=== PATIENT | female | born 1995 | race Caucasian/White ===

== ENCOUNTER 2016-04-21 01:20 | Emergency (ER) | payer BC, SELFPAY ==
[~2016-04-21 01:20] MED LIST: VICO5TAB PO; prenatal vitamins
[2016-04-21] MEDS ORDERED: METOCLOPRAMIDE 10 MG TAB As Ordered ONE (01:58)
[2016-04-21] MEDS ORDERED: NAPROXEN 250 MG TAB As Ordered ONE (01:58)
--- NOTE | 2016-04-21 02:20 | REPUSA ---
CLINICAL HISTORY: Head trauma. TECHNIQUE: Multiple axial brain CT scan sections were obtained from base to vertex without contrast a dministration. COMMENTS: There is no evidence of skull fracture. The study shows normal configuration of sella turcica. There are no intra or extra-axial collections. There is no mass effect or midline shift. There is no evidence of hematoma formation. No hydrocephal us is present. No abnormal calcifications are noted. No significant abnormalities are seen either in the posterior fossa or supratentorial compartment. Mild chronic mucosal inflammatory changes of the ethmoid air cells. The sinuses and mastoid air cells are patent. IMPRESSION: Mild chronic mucosal inflammatory changes of the ethmoid air cells. No evidence of acute intracranial pathology. No intracranial hemorrhage or skull fracture. Thank you for your kind referral of this patient.
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
--- NOTE | 2016-04-21 02:23 | EDDOCDS ---
Physician Documentation [facility] Name: Tona Valdes Age: 20 yrs Sex: Female : 1995 Arrival Date: 04/21/2016 Time: 01:20 Bed I4 / M4 Private MD: Disposition: 04/21/16 02:19 Discharged to Home/Self Care. Impression: Concussion without loss of consciousness. - Condition is Stable. - Discharge Instructions: Head Injury, Adult. - Prescriptions for ZOFRAN ODT 4 mg - dissolve 1 tablet by ORAL route 4 times per day As needed do not chew, do not swallow whole; 10 tablet. - Medication Reconciliation form. - Follow up: Emergency Department; When: As needed. Follow [facility]: [facility]; When: Call to arrange an appointment; Reason: Wound/Symptom Recheck, Recheck today's complaints, Worsening of conditions, Continuance of care. - Problem is an ongoing problem. - Symptoms are unchanged. Historical: - Allergies: no known allergies; - Home Meds: 1. none - PMHx: Ovarian cyst; - PSHx: Laparoscopy; - Social history: Smoking status: Patient uses tobacco products, current every day smoker. No barriers to communication noted, The patient speaks fluent Malaysian, Speaks appropriately for age, Preferred Language: Malaysian. - Family history: No immediate family members are acutely ill. - : The pt / caregiver states he / she is not on anticoagulants. Home medication list is obtained from the patient. - Exposure Risk Screening:: None identified. 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 5 in. (165.10 cm) (R); Pain 8/10; 01:37 Body Mass Index 21.63 (58.97 kg, 165.10 cm) lf1 Riana Coma Score: 01:33 Eye Response: spontaneous(4). Verbal Response: oriented(5). Motor Response: obeys lf1 commands(6). Total: 15. MDM: 01:50 Metoclopramide 10 mg PO once ordered. cc10 01:50 Naproxen 500 mg PO once; administer with food or milk ordered. cc10 01:51 CT Head Without Contrast Ordered. EDMS Administered Medications: 02:00 Drug: Metoclopramide 10 mg [metoclopramide 10 mg tablet (1 tabs)] Route: PO; nn1 02:00 Drug: Naproxen 500 mg [naproxen 250 mg tablet (2 tabs)] Route: PO; nn1 Signatures: Dispatcher [employer] EDMS Ashia Bella RN RN lf1 Sky Mccabe, PA-C PA-C cc10 Manpreet Maciel,RN RN nn1 MTDD
--- NOTE | 2016-04-23 03:24 | EDDOCDS ---
Physician Documentation [facility] Name: Tona Valdes Age: 20 yrs Sex: Female : 1995 Arrival Date: 04/21/2016 Time: 01:20 Bed I4 / M4 Private MD: Disposition: 04/21/16 02:19 Discharged to Home/Self Care. Impression: Concussion without loss of consciousness. - Condition is Stable. - Discharge Instructions: Head Injury, Adult. - Prescriptions for ZOFRAN ODT 4 mg - dissolve 1 tablet by ORAL route 4 times per day As needed do not chew, do not swallow whole; 10 tablet. - Medication Reconciliation form. - Follow up: Emergency Department; When: As needed. Follow up: [facility]; When: Call to arrange an appointment; Reason: Wound/Symptom Recheck, Recheck today's complaints, Worsening of conditions, Continuance of care. - Problem is an ongoing problem. - Symptoms are unchanged. Historical: - Allergies: no known allergies; - Home Meds: 1. none - PMHx: Ovarian cyst; - PSHx: Laparoscopy; - Social history: Smoking status: Patient uses tobacco products, current every day smoker. No barriers to communication noted, The patient speaks fluent Mozambican, Speaks appropriately for age, Preferred Language: Mozambican. - Family history: No immediate family members are acutely ill. - : The pt / caregiver states he / she is not on anticoagulants. Home medication list is obtained from the patient. - Exposure Risk Screening:: None identified. 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 5 in. (165.10 cm) (R); Pain 8/10; 01:37 Body Mass Index 21.63 (58.97 kg, 165.10 cm) lf1 Riana Coma Score: 01:33 Eye Response: spontaneous(4). Verbal Response: oriented(5). Motor Response: obeys lf1 commands(6). Total: 15. MDM: 01:50 Metoclopramide 10 mg PO once ordered. cc10 01:50 Naproxen 500 mg PO once; administer with food or milk ordered. cc10 01:51 CT Head Without Contrast Ordered. EDMS 03:14 [facility] [place] Payment Agreement was scanned into [employer] and attached to record. pm4 13:55 T-Sheet-- Draft Copy was scanned into [employer] and attached to record. gb 13:56 Radiology Report was scanned into [employer] and attached to record. gb Administered Medications: 02:00 Drug: Metoclopramide 10 mg [metoclopramide 10 mg tablet (1 tabs)] Route: PO; nn1 02:00 Drug: Naproxen 500 mg [naproxen 250 mg tablet (2 tabs)] Route: PO; nn1 Signatures: Dispatcher [employer] EDMS Penny Morales, Reg Reg gb Ashia Bella,RN RN lf1 Sky Mccabe PA-C PAQuoc cc10 Manpreet Maciel RN RN nn1 Marin Mead, Reg Reg pm4 The chart was reviewed and I authenticate all verbal orders and agree with the evaluation and treatment provided.Attachments: 03:14 [facility] Payment Agreement pm4 13:55 T-Sheet-- Draft Copy gb Chart Complete MTDD
--- NOTE | 2016-04-23 03:24 | EDDOCDS ---
Physician Documentation [facility] Name: Tona Valdes Age: 20 yrs Sex: Female : 1995 Arrival Date: 04/21/2016 Time: 01:20 Bed I4 / M4 Private MD: Disposition: 04/21/16 02:19 Discharged to Home/Self Care. Impression: Concussion without loss of consciousness. - Condition is Stable. - Discharge Instructions: Head Injury, Adult. - Prescriptions for ZOFRAN ODT 4 mg - dissolve 1 tablet by ORAL route 4 times per day As needed do not chew, do not swallow whole; 10 tablet. - Medication Reconciliation form. - Follow up: Emergency Department; When: As needed. Follow up: [facility]; When: Call to arrange an appointment; Reason: Wound/Symptom Recheck, Recheck today's complaints, Worsening of conditions, Continuance of care. - Problem is an ongoing problem. - Symptoms are unchanged. Historical: - Allergies: no known allergies; - Home Meds: 1. none - PMHx: Ovarian cyst; - PSHx: Laparoscopy; - Social history: Smoking status: Patient uses tobacco products, current every day smoker. No barriers to communication noted, The patient speaks fluent Luxembourger, Speaks appropriately for age, Preferred Language: Luxembourger. - Family history: No immediate family members are acutely ill. - : The pt / caregiver states he / she is not on anticoagulants. Home medication list is obtained from the patient. - Exposure Risk Screening:: None identified. 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 5 in. (165.10 cm) (R); Pain 8/10; 01:37 Body Mass Index 21.63 (58.97 kg, 165.10 cm) lf1 Riana Coma Score: 01:33 Eye Response: spontaneous(4). Verbal Response: oriented(5). Motor Response: obeys lf1 commands(6). Total: 15. MDM: 01:50 Metoclopramide 10 mg PO once ordered. cc10 01:50 Naproxen 500 mg PO once; administer with food or milk ordered. cc10 01:51 CT Head Without Contrast Ordered. EDMS 03:14 [facility] [place] Payment Agreement was scanned into [employer] and attached to record. pm4 13:55 T-Sheet-- Draft Copy was scanned into [employer] and attached to record. gb 13:56 Radiology Report was scanned into [employer] and attached to record. gb Administered Medications: 02:00 Drug: Metoclopramide 10 mg [metoclopramide 10 mg tablet (1 tabs)] Route: PO; nn1 02:00 Drug: Naproxen 500 mg [naproxen 250 mg tablet (2 tabs)] Route: PO; nn1 Signatures: Dispatcher [employer] EDMS Penny Morales, Reg Reg gb Ashia Bella,RN RN lf1 Sky Mccabe PA-C PAQuco cc10 Manpreet Maciel RN RN nn1 Marin Mead, Reg Reg pm4 The chart was reviewed and I authenticate all verbal orders and agree with the evaluation and treatment provided.Attachments: 03:14 [facility] Payment Agreement pm4 13:55 T-Sheet-- Draft Copy gb Chart Complete MTDD
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
== END 2016-04-21 02:23 | disposition home or self-care (01) ==
LOC: M ED 01:20
DX: S06.0X0A Concussion without loss of consciousness, initial encounter (principal); W22.01XA Walked into wall, initial encounter; Y92.410 Unspecified street and highway as the place of occurrence of the external cause; Y93.89 Activity, other specified; Y99.8 Other external cause status; Z87.42 Personal history of other diseases of the female genital tract; F17.210 Nicotine dependence, cigarettes, uncomplicated

== ENCOUNTER → 2016-06-02 | Outpatient (CLI) | payer BC ==
[2016-06-02 17:36] LABS: CONTROL LINE HCG INT CTR LINE PRESENT
[2016-06-02 18:05] LABS: ALBUMIN 4.2 GM/DL (3.2-5.2); ALBUMIN/GLOBULIN RATIO 1.35 (1.00-1.93); ALKALINE PHOSPHATASE 54 U/L (45-117); ALT/SGPT 15 U/L (12-78); AMYLASE 56 U/L (25-115); ANION GAP 9 MEQ/L (8-16); AST/SGOT 12 U/L (15-37); BILIRUBIN,TOTAL 0.2 MG/DL (0.2-1.0); BLOOD UREA NITROGEN 14 MG/DL (7-18); CALCIUM LEVEL 8.8 MG/DL (8.5-10.1); CARBON DIOXIDE LEVEL 27 MEQ/L (21-32); CHLORIDE LEVEL 106 MEQ/L (98-107); CREATININE FOR GFR 0.82 MG/DL (0.55-1.02); FREE T4 1.02 NG/DL (0.78-1.33); GLUCOSE, FASTING 126 MG/DL (70-105); MAGNESIUM LEVEL 2.2 MG/DL (1.8-2.4); POTASSIUM SERUM 4.3 MEQ/L (3.5-5.1); SODIUM LEVEL 142 MEQ/L (136-145); TOTAL PROTEIN 7.3 GM/DL (6.4-8.2)
[2016-06-02 18:32] LABS: ADD MORPHOLOGY? YES; BASO % 0.7 % (0.0-1.0); EOS # 0.1 K/mm3 (0.0-0.50); EOS % 2.9 % (0.0-3.0); LARGE UNSTAINED CELL # 0.1 K/mm3 (0.0-0.4); LARGE UNSTAINED CELL % 1.8 % (0.0-4.0); LYMPH # 1.4 K/mm3 (1.5-6.5); MEAN CORPUSCULAR HEMOGLOBIN 27.4 pg (27.0-33.0); MEAN CORPUSCULAR HGB CONC 31.1 g/dl (32.0-36.5); MEAN CORPUSCULAR VOLUME 88.2 fl (80.0-96.0); MONO # 0.3 K/mm3 (0.0-0.8); MONO % 6.6 % (0.0-5.0); NEUTROPHILS # 2.1 K/mm3 (1.8-7.7); NEUTROPHILS % 53.9 % (36.0-66.0); PLATELET COUNT, AUTOMATED 299 k/mm3 (150-450); RED CELL DISTRIBUTION WIDTH 13.7 % (11.5-14.5); WHITE BLOOD COUNT 3.8 K/mm3 (4.0-10.0)
[2016-06-03 08:32] LABS: CONTROL LINE HPYORI INT CTR LINE PRESENT
== END ==
LOC: M WUC 10:50
PROVIDERS: ATTEND Physician Assistant Medical
DX: R11.0 Nausea (principal)

== ENCOUNTER → 2016-06-23 | Outpatient (CLI) | payer BC ==
[2016-06-23 19:03] LABS: ANION GAP 6 MEQ/L (8-16); BLOOD UREA NITROGEN 14 MG/DL (7-18); CARBON DIOXIDE LEVEL 28 MEQ/L (21-32); CHLORIDE LEVEL 106 MEQ/L (98-107); FERRITIN 4 NG/ML (8-252); GLUCOSE, FASTING 86 MG/DL (70-105); PERCENT SATURATION 10.9 % (13.2-37.4); POTASSIUM SERUM 4.2 MEQ/L (3.5-5.1); SODIUM LEVEL 140 MEQ/L (136-145); TOTAL IRON BINDING CAPACITY 433 UG/DL (250-450)
== END ==
LOC: M WUC 10:34
PROVIDERS: ATTEND Physician Assistant Medical
DX: R53.83 Other fatigue (principal); R73.01 Impaired fasting glucose

== ENCOUNTER → 2017-03-01 | Outpatient (CLI) | payer BC ==
[~2017-03-01] MED LIST changes: +BACT800T5 PO; +TYLE500T78 PO; +ULTR50TA8 PO; +ZOFR4TAB3 PO
[2017-03-01 10:11] LABS: BASO % 0.4 % (0.0-1.0); EOS # 0.2 10^3/uL (0.0-0.50); IMMATURE GRANULOCYTE % 0.4 % (0-0); LYMPH # 1.6 10^3/uL (1.5-6.5); LYMPH % 23.2 % (24.0-44.0); MEAN CORPUSCULAR HEMOGLOBIN 29.3 pg (27.0-33.0); MEAN CORPUSCULAR VOLUME 88.7 fl (80.0-96.0); MONO # 0.8 10^3/uL (0.0-0.8); MONO % 11.2 % (0.0-5.0); NEUTROPHILS # 4.1 10^3/uL (1.8-7.7); NEUTROPHILS % 61.8 % (36.0-66.0); PLATELET COUNT, AUTOMATED 247 10^3/uL (150-450); RED CELL DISTRIBUTION WIDTH 17.6 % (11.5-14.5); WHITE BLOOD COUNT 6.7 10^3/uL (4.0-10.0)
[2017-03-01 10:32] LABS: ALBUMIN 4.1 GM/DL (3.2-5.2); ALBUMIN/GLOBULIN RATIO 1.24 (1.00-1.93); ALKALINE PHOSPHATASE 44 U/L (45-117); ALT/SGPT 20 U/L (12-78); ANION GAP 5 MEQ/L (8-16); AST/SGOT 16 U/L (7-37); BILIRUBIN,TOTAL 0.4 MG/DL (0.2-1.0); BLOOD UREA NITROGEN 12 MG/DL (7-18); CALCIUM LEVEL 9.4 MG/DL (8.5-10.1); CARBON DIOXIDE LEVEL 30 MEQ/L (21-32); CHLORIDE LEVEL 107 MEQ/L (98-107); CHOLESTEROL LEVEL 132 MG/DL (<200); CREATININE FOR GFR 0.87 MG/DL (0.55-1.02); GLOMERULAR FILTRATION RATE > 60.0 (>60); GLUCOSE, FASTING 86 MG/DL (70-105); PERCENT SATURATION 16.3 % (13.2-45.0); POTASSIUM SERUM 4.1 MEQ/L (3.5-5.1); SODIUM LEVEL 142 MEQ/L (136-145); TOTAL IRON BINDING CAPACITY 326 UG/DL (250-450); TOTAL PROTEIN 7.4 GM/DL (6.4-8.2); TRIGLYCERIDES LEVEL 74 MG/DL (<150)
[2017-03-01 10:38] LABS: CORTISOL AM 26.4 UG/DL (4.3-22.4); PROGESTERONE 8.3 NG/ML
[2017-03-03 00:06] LABS: TISSUE TRANSGLUTAMINASE IgG <2 U/mL (0-5)
== END ==
LOC: M LAB 09:29
PROVIDERS: ATTEND Nurse Practitioner Pediatrics
DX: E83.10 Disorder of iron metabolism, unspecified (principal); F43.22 Adjustment disorder with anxiety; F90.9 Attention-deficit hyperactivity disorder, unspecified type

== ENCOUNTER 2017-03-19 15:31 | Emergency (ER) | payer BC ==
[~2017-03-19] VITALS: Ht 165.1 cm; Wt 55.9 kg
[2017-03-19 16:03] LABS: SPECIFIC GRAVITY UR AUTO RFX 1.003 (1.002-1.035); SQUAM EPITHELIAL CELL UR AURFX 2 /HPF (0-6)
[2017-03-19] MEDS ORDERED: NS 1,000 ML IV ONE (16:15)
[2017-03-19] MEDS ORDERED: ONDANSETRON 4MG/2ML VIAL (J2405) IV ONE (16:15)
[2017-03-19] MEDS ORDERED: PANTOPRAZOLE 40MG INJ (PROTONIX) (C9113) IV ONE (16:15)
[2017-03-19] MEDS ORDERED: KETOROLAC 30 MG/ML VIAL (J1885) IV ONE (16:15)
[2017-03-19 16:39] LABS: BASO # 0.1 10^3/uL (0.0-0.2); BASO % 0.5 % (0.0-1.0); EOS # 0.1 10^3/uL (0.0-0.50); EOS % 0.8 % (0.0-3.0); IMMATURE GRANULOCYTE % 0.3 % (0-0); LYMPH # 2.3 10^3/uL (1.5-6.5); LYMPH % 23.7 % (24.0-44.0); MEAN CORPUSCULAR HEMOGLOBIN 29.4 pg (27.0-33.0); MEAN CORPUSCULAR HGB CONC 33.4 g/dl (32.0-36.5); MEAN CORPUSCULAR VOLUME 87.9 fl (80.0-96.0); MONO # 0.6 10^3/uL (0.0-0.8); MONO % 5.7 % (0.0-5.0); NEUTROPHILS # 6.7 10^3/uL (1.8-7.7); PLATELET COUNT, AUTOMATED 321 10^3/uL (150-450); RED CELL DISTRIBUTION WIDTH 16.2 % (11.5-14.5); WHITE BLOOD COUNT 9.7 10^3/uL (4.0-10.0)
--- NOTE | 2017-03-19 16:42 | REP ---
Clinical: Left upper quadrant abdominal pain. Findings: Lung bases are clear. Visualized heart and pericardium normal. Liver, spleen, pancreas, gallbladder, bilateral adrenal glands and kidneys are normal for noncontrast evaluation. Enteric system is without obstruction or acute inflammatory process. Normal terminal ileum and appendix identified in the right lower quadrant. Pelvis demonstrates normal bladder and age-appropriate uterus/adnexa. No pelvic fluid or ascites. No free air. Musculoskeletal structures are intact. Impression: No acute abdominopelvic pathology appreciated. Signed by Timothy Palacio MD 03/19/2017 04:33 P
[2017-03-19 17:02] LABS: ALBUMIN 4.3 GM/DL (3.2-5.2); ALBUMIN/GLOBULIN RATIO 1.34 (1.00-1.93); ALKALINE PHOSPHATASE 52 U/L (45-117); ALT/SGPT 21 U/L (12-78); ANION GAP 7 MEQ/L (8-16); AST/SGOT 18 U/L (7-37); BILIRUBIN,DIRECT 0.2 MG/DL (0.0-0.2); BILIRUBIN,TOTAL 0.4 MG/DL (0.2-1.0); BLOOD UREA NITROGEN 9 MG/DL (7-18); CARBON DIOXIDE LEVEL 29 MEQ/L (21-32); CHLORIDE LEVEL 105 MEQ/L (98-107); CREATININE FOR GFR 0.63 MG/DL (0.55-1.02); GLOMERULAR FILTRATION RATE > 60.0 (>60); GLUCOSE, FASTING 82 MG/DL (70-105); POTASSIUM SERUM 3.8 MEQ/L (3.5-5.1); SODIUM LEVEL 141 MEQ/L (136-145); TOTAL PROTEIN 7.5 GM/DL (6.4-8.2)
[2017-03-19] MEDS ORDERED: CARA1TAB6 PO (17:29)
[2017-03-19] MEDS ORDERED: PROT1TAB2 PO (17:29)
[2017-03-19 17:59] VITALS: BP 122/74
== END 2017-03-19 18:02 | disposition home or self-care (01) ==
LOC: M ED 15:31
DX: K29.00 Acute gastritis without bleeding (principal); Z72.0 Tobacco use
CPT/HCPCS: 74176; 80048; 80076; 81001; 81025; 83690; 85025; 85610; 96374; 96375; 99284; C9113; J1885; J2405

== ENCOUNTER → 2018-11-24 | Outpatient (CLI) | payer MEDICARE ==
[~2018-11-24] MED LIST changes: +CARA1TAB6 PO; +PROT1TAB2 PO; +ZOFR4TAB14 PO; -ZOFR4TAB3 PO
--- NOTE | 2018-11-24 14:35 | REP ---
Cervical spine age views: Vertebral body heights, interspacing alignment are normal C1-C7. Kilos obscured on the lateral views by the shoulders. There is no listhesis on flexion or extension. The prevertebral soft tissues are unremarkable. The facets are normally aligned. There is no bony foraminal encroachment. The odontoid view is unremarkable. Impression: Negative cervical spine C1-C7. T1 is obscured by the shoulders. Electronically Signed by Saúl Kern MD 11/24/2018 02:27 P
--- NOTE | 2018-11-24 14:36 | REP ---
Left shoulder three views : There is no fracture or dislocation. Mineralization and joint spaces are normal. There are no calcifications or foreign bodies. Impression: Negative left shoulder . Electronically Signed by Saúl Kern MD 11/24/2018 02:28 P
[2018-11-24 17:08] LABS: ALT/SGPT 17 U/L (12-78); BILIRUBIN,TOTAL 0.6 MG/DL (0.2-1.0); BLOOD UREA NITROGEN 12 MG/DL (7-18); CALCIUM LEVEL 9.2 MG/DL (8.5-10.1); CARBON DIOXIDE LEVEL 25 MEQ/L (21-32); CHLORIDE LEVEL 107 MEQ/L (98-107); CHOLESTEROL LEVEL 156 MG/DL (<200); CHOLESTEROL RISK RATIO 2.328 (<5); CREATININE FOR GFR 0.68 MG/DL (0.55-1.30); GLOMERULAR FILTRATION RATE > 60.0 (>60); GLUCOSE, FASTING 80 MG/DL (70-100); HDL CHOLESTEROL 67 MG/DL (>40); LDL CHOLESTEROL 74 MG/DL (<100); NON-HDL-C 89 MG/DL; POTASSIUM SERUM 4.4 MEQ/L (3.5-5.1); SODIUM LEVEL 138 MEQ/L (136-145); THYROID STIMULATING HORMONE 0.911 uIU/ML (0.358-3.740); TOTAL PROTEIN 7.2 GM/DL (6.4-8.2); TRIGLYCERIDES LEVEL 74 MG/DL (<150)
[2018-11-24 17:10] LABS: TOTAL 25(OH) VITAMIN D 33.2 NG/ML (30.0-100.0)
[2018-11-24 17:30] LABS: HEMOGLOBIN 10.4 g/dl (12.0-15.5); MEAN CORPUSCULAR HEMOGLOBIN 25.2 pg (27.0-33.0); MEAN CORPUSCULAR HGB CONC 30.6 g/dl (32.0-36.5); MEAN CORPUSCULAR VOLUME 82.5 fl (80.0-96.0); PLATELET COUNT, AUTOMATED 302 10^3/uL (150-450); RED BLOOD COUNT 4.12 10^6/uL (4.00-5.40); WHITE BLOOD COUNT 4.4 10^3/uL (4.0-10.0)
[2018-11-24 18:21] LABS: HEMOGLOBIN A1c 6.3 %
== END ==
LOC: M WUC 10:37
PROVIDERS: ATTEND Family Medicine
DX: D64.9 Anemia, unspecified (principal); R53.83 Other fatigue; E03.9 Hypothyroidism, unspecified

== ENCOUNTER → 2019-08-30 | Outpatient (CLI) | payer MEDICARE ==
[2019-08-30 16:40] LABS: BASO % 0.6 % (0.0-1.0); EOS # 0.1 10^3/uL (0.0-0.5); EOS % 2.2 % (0.0-3.0); HEMATOCRIT 37.8 % (36.0-47.0); HEMOGLOBIN 12.2 g/dl (12.0-15.5); LYMPH # 1.9 10^3/uL (1.5-5.0); LYMPH % 36.1 % (24.0-44.0); MEAN CORPUSCULAR HEMOGLOBIN 27.6 pg (27.0-33.0); MEAN CORPUSCULAR HGB CONC 32.3 g/dl (32.0-36.5); MEAN CORPUSCULAR VOLUME 85.5 fl (80.0-96.0); MONO # 0.4 10^3/uL (0.0-0.8); MONO % 6.9 % (0.0-5.0); NEUTROPHILS # 2.9 10^3/uL (1.5-8.5); PLATELET COUNT, AUTOMATED 306 10^3/uL (150-450); RED BLOOD COUNT 4.42 10^6/uL (4.00-5.40); WHITE BLOOD COUNT 5.3 10^3/uL (4.0-10.0)
[2019-08-30 16:41] LABS: ALBUMIN 4.2 GM/DL (3.2-5.2); ALT/SGPT 28 U/L (12-78); BILIRUBIN,TOTAL 0.2 MG/DL (0.2-1.0); BLOOD UREA NITROGEN 10 MG/DL (7-18); CALCIUM LEVEL 9.3 MG/DL (8.5-10.1); CARBON DIOXIDE LEVEL 25 MEQ/L (21-32); CHLORIDE LEVEL 108 MEQ/L (98-107); CREATININE FOR GFR 0.69 MG/DL (0.55-1.30); GLOMERULAR FILTRATION RATE > 60.0 (>60); GLUCOSE, FASTING 90 MG/DL (70-100); LIPASE 125 U/L (73-393); POTASSIUM SERUM 4.2 MEQ/L (3.5-5.1); SODIUM LEVEL 140 MEQ/L (136-145); TOTAL PROTEIN 7.3 GM/DL (6.4-8.2)
--- NOTE | 2019-08-30 23:50 | REP ---
CHEST, TWO VIEWS: There is no evidence of acute infiltrate. No pleural effusion is seen. The heart is normal in size. The mediastinal silhouette is unremarkable. The visualized osseous structures are intact. IMPRESSION: No acute pulmonary disease. Electronically Signed by Saúl Mcnamara MD 09/03/2019 09:28 P
== END ==
LOC: M WUC 13:21
PROVIDERS: ATTEND Physician Assistant
DX: R10.13 Epigastric pain (principal); R07.89 Other chest pain

== ENCOUNTER → 2019-12-31 | Outpatient (CLI) | payer MEDICARE ==
[2019-12-31 18:23] LABS: HCG, SERUM QUALITATIVE NEGATIVE (NEGATIVE)
[2019-12-31 18:42] LABS: FOLLICLE STIMULATING HORMONE 24.5 mIU/mL; GLUCOSE,RANDOM 82 MG/DL (LESS THAN 200); PROLACTIN 9.9 NG/ML
[2020-01-08 00:08] LABS: 17 HYDROXY PROGESTERONE 125 ng/dL (.); INSULIN FREE 3.9 uU/mL (.); TESTOSTERONE FREE (DIRECT) 2.5 pg/mL (0.0-4.2)
== END ==
LOC: M WUC 12:05
PROVIDERS: ATTEND Nurse Practitioner Adult Health
DX: N92.6 Irregular menstruation, unspecified (principal)

== ENCOUNTER → 2020-03-03 | Outpatient (CLI) | payer MEDICARE | LOC: M WUC 08:39 | PROVIDERS: ATTEND Obstetrics & Gynecology Obstetrics | DX: Z71.2 Person consulting for explanation of examination or test findings (principal) ==

== ENCOUNTER → 2020-07-10 | Outpatient (REF) | payer OTHER ==
[2020-07-10 14:16] LABS: HEMOGLOBIN 12.3 g/dl (12.0-15.5); MEAN CORPUSCULAR HEMOGLOBIN 30.1 pg (27.0-33.0); MEAN CORPUSCULAR HGB CONC 32.4 g/dl (32.0-36.5); MEAN CORPUSCULAR VOLUME 93.1 fl (80.0-96.0); PLATELET COUNT, AUTOMATED 264 10^3/uL (150-450); RED BLOOD COUNT 4.08 10^6/uL (4.00-5.40); WHITE BLOOD COUNT 6.4 10^3/uL (4.0-10.0)
[2020-07-10 15:06] LABS: CHLAMYDIA DNA AMPLIFICATION NEGATIVE (NEGATIVE); GC DNA AMPLIFICATION NEGATIVE (NEGATIVE)
[2020-07-10 16:46] LABS: HEPATITIS C VIRUS ABY INDEX < 0.0 INDEX (<0.8); HIV 1&2 SCREEN CENTAUR NEGATIVE (NEGATIVE)
== END ==
LOC: M PLALAB 10:52
PROVIDERS: ATTEND Obstetrics & Gynecology
DX: Z36.89 Encounter for other specified antenatal screening (principal); Z3A.01 Less than 8 weeks gestation of pregnancy

== ENCOUNTER → 2020-08-05 | Outpatient (CLI) | payer OTHER | LOC: M WHC 10:47 | PROVIDERS: ATTEND Obstetrics & Gynecology | DX: Z53.9 Procedure and treatment not carried out, unspecified reason (principal) ==

== ENCOUNTER → 2020-08-28 | Outpatient (CLI) | payer BC ==
--- NOTE | 2020-08-28 12:53 | REP ---
INDICATION: ANATOMY COMPARISON: None. TECHNIQUE: Transabdominal obstetrical ultrasound with color Doppler evaluation. FINDINGS: Examination demonstrates a single live intrauterine in variable presentation. motion is identified by technologist. Placenta is noted posterior and grade 1 without evidence for placenta previa or abruption. Placental lakes noted. Amniotic fluid volume is normal. Cervix measures 4 cm in length and appears closed.. Gestational age by LMP 18 weeks 3 days with CALLI 01/26/2021. Gestational age by current measurements 18 weeks 4 days with CALLI 01/25/2021. FHR equals 142 beats per minute. Estimated weight 252 grams (62ndpercentile). Anatomical assessment demonstrates normal structures including cranium, choroid plexus, cavum, cerebellum/posterior fossa, facial features, lungs, diaphragm, stomach, cord insertion/three-vessel cord, kidneys/bladder, spine, and extremities. IMPRESSION: 1. Single live intrauterine in variable presentation demonstrating appropriate estimated weight. 2. Limited evaluation of the heart/ventricular outflow tracts. Remainder of the anatomical assessment is complete and normal. 3. Incidental placental lakes noted. <Electronically signed by Timothy Palacio > 08/28/20 [id number]
== END ==
LOC: M WHC 10:29
PROVIDERS: ATTEND Obstetrics & Gynecology
DX: Z36.89 Encounter for other specified antenatal screening (principal); Z3A.15 15 weeks gestation of pregnancy

== ENCOUNTER → 2020-09-03 | Outpatient (REF) | payer OTHER | LOC: M PLALAB 09:50 | PROVIDERS: ATTEND Advanced Practice Midwife | DX: O99.019 Anemia complicating pregnancy, unspecified trimester (principal) ==

== ENCOUNTER → 2020-09-03 | Outpatient (CLI) | payer OTHER ==
[2020-09-03 18:15] LABS: HEMATOCRIT 31.3 % (36.0-47.0); HEMOGLOBIN 10.4 g/dl (12.0-15.5); MEAN CORPUSCULAR HEMOGLOBIN 30.6 pg (27.0-33.0); MEAN CORPUSCULAR HGB CONC 33.2 g/dl (32.0-36.5); MEAN CORPUSCULAR VOLUME 92.1 fl (80.0-96.0); PLATELET COUNT, AUTOMATED 246 10^3/uL (150-450); WHITE BLOOD COUNT 9.4 10^3/uL (4.0-10.0)
== END ==
LOC: M LAB 16:33
PROVIDERS: ATTEND Advanced Practice Midwife
DX: O99.019 Anemia complicating pregnancy, unspecified trimester (principal)

== ENCOUNTER → 2020-10-13 | Outpatient (CLI) | payer BC ==
--- NOTE | 2020-10-13 13:40 | REP ---
INDICATION: F/U ANATOMY. COMPARISON: 08/28/2020. TECHNIQUE: Real-time sonographic evaluation of the gravid uterus performed. FINDINGS: Estimated gestational age is25 weeks 0 days, EDC 01/26/2021. Today's measurements indicate appropriate growth. Presentation: Cephalic Placenta posterior, grade 1, without evidence of placenta previa. heart rate is recorded at 136 beats per minute. Amniotic fluid is subjectively normal. Closed cervical length is measured at 3.5 cm. Biometry chart: BPD: 60 mm, 24 weeks 3 days, 39th percentile. HC: 224 mm, 24 weeks 3 days, 37th percentile AC: 196 mm, 24 weeks 2 days, 35th percentile Femur length: 45 mm, 25 weeks 0 days, 49th percentile HC to AC ratio: 1.14, normal range 1.01-1.20. Estimated weight: 709g, 23rd percentile. anatomy: Cranium: Grossly normal Lateral Ventricles/Choroid Plexus: Grossly normal Posterior Fossa/Cerebellum: Previously seen Nose/lips/profile: Grossly normal Four chamber heart: Grossly normal Right ventricular outflow tract: Grossly normal Left ventricular outflow tract: Grossly normal Left-sided stomach: Grossly normal Kidneys: Grossly normal Bladder: Grossly normal Cord Insertion: Grossly normal 3 vessel cord: Grossly normal Spine: Previously seen IMPRESSION: Viable single intrauterine gestation as above. <Electronically signed by Saúl Mcnamara > 10/13/20 [id number]
== END ==
LOC: M WHC 10:53
PROVIDERS: ATTEND Obstetrics & Gynecology
DX: Z34.02 Encounter for supervision of normal first pregnancy, second trimester (principal)

== ENCOUNTER → 2020-10-15 | Outpatient (CLI) | payer BC, OTHER ==
[2020-10-15 14:08] LABS: HEMATOCRIT 35.1 % (36.0-47.0); HEMOGLOBIN 11.3 g/dl (12.0-15.5); MEAN CORPUSCULAR HEMOGLOBIN 31.4 pg (27.0-33.0); MEAN CORPUSCULAR HGB CONC 32.2 g/dl (32.0-36.5); MEAN CORPUSCULAR VOLUME 97.5 fl (80.0-96.0); PLATELET COUNT, AUTOMATED 200 10^3/uL (150-450); WHITE BLOOD COUNT 8.4 10^3/uL (4.0-10.0)
== END ==
LOC: M PLALAB 08:45
PROVIDERS: ATTEND Obstetrics & Gynecology
DX: Z36.89 Encounter for other specified antenatal screening (principal); Z34.02 Encounter for supervision of normal first pregnancy, second trimester

== ENCOUNTER → 2020-12-29 | Outpatient (REF) | payer BC, OTHER | LOC: M SFHCWAGY 12:57 | PROVIDERS: ATTEND Specialist | DX: Z34.03 Encounter for supervision of normal first pregnancy, third trimester (principal) ==

== ENCOUNTER → 2021-01-08 | Outpatient (CLI) | payer BC, OTHER ==
--- NOTE | 2021-01-08 16:37 | REP ---
INDICATION: GROWTH UTERINE SIZE DATE DISCREPANCY COMPARISON: 10/13/2020 TECHNIQUE: Transabdominal obstetrical ultrasound with color Doppler evaluation. FINDINGS: Examination demonstrates a single live intrauterine in cephalic presentation. motion is identified by technologist. Placenta is noted posterior and grade 2 without evidence for placenta previa or abruption. Amniotic fluid volume is normal. Cervix appears closed.. Selected gestational age: 37 weeks 3 days with CALLI 01/26/2021. Gestational age by current measurements 36 weeks 4 days with CALLI 02/01/2021. FHR equals 158 beats per minute. BPD: 8.4 cm at 34 weeks 0 days HC: 32.9 cm at 37 weeks 3 days AC: 33.3 cm at 37 weeks 2 days FL: 7.2 cm at 37 weeks 0 days HL: 6.4 cm at 37 weeks 0 days HC/AC: 0.99 Estimated weight 3041 grams (42ndpercentile). [place]: 12.5 cm Umbilical artery SD ratio: 2.63 (1.57-3.40) IMPRESSION: Single live advanced gestation in cephalic presentation demonstrating appropriate interval growth. Amniotic fluid volume normal. <Electronically signed by Timothy Palacio > 01/08/21 1752
== END ==
LOC: M WHC 12:29
PROVIDERS: ATTEND Advanced Practice Midwife
DX: O26.849 Uterine size-date discrepancy, unspecified trimester (principal)

== ENCOUNTER 2021-01-25 23:50 | Inpatient (IN) | payer BC, OTHER ==
[~2021-01-25] VITALS: Ht 165.1 cm; Wt 80.8 kg
[2021-01-26] VITALS (36 sets, daily range): BP systolic 97–148; BP diastolic 53–99
[2021-01-26] MEDS ORDERED: PRENTAB9 PO (00:07)
[2021-01-26] MEDS ORDERED: METF-839 PO (00:07)
[2021-01-26] MEDS ORDERED: HOME MED LIST COMPLETE! XX SCH (00:10)
[2021-01-26] MEDS ORDERED: LR 1,000 ML IV ONE (00:25)
[2021-01-26 01:07] LABS: HEMATOCRIT 36.5 % (36.0-47.0); HEMOGLOBIN 12.4 g/dl (12.0-15.5); MEAN CORPUSCULAR HEMOGLOBIN 31.5 pg (27.0-33.0); MEAN CORPUSCULAR VOLUME 92.6 fl (80.0-96.0); PLATELET COUNT, AUTOMATED 229 10^3/uL (150-450); RED BLOOD COUNT 3.94 10^6/uL (4.00-5.40); WHITE BLOOD COUNT 11.4 10^3/uL (4.0-10.0)
--- OUTSIDE RECORDS SUMMARY | 2021-01-26 02:04 | CCD ---
Author Author [facility] Organization [facility] Address Unknown Phone Unavailable Care Team Providers Care Jalousie Installer Name Role Phone Carol Mayes Unavailable PROBLEMS Type Condition ICD9-CM Code [id number] Code Onset Dates Condition S tatus W/U Status Risk SNOMED Code Notes Problem Anemia complicating , third trimester O99 .013 Active confirmed 35945232 Problem Iron deficiency anemia, unspecified iron deficiency an emia type D50.9 Active confirmed 30682476 Problem Supervision of other normal Z34.80 Ac tive confirm [id number] Problem 11 weeks gestation of Z3A.11 Active confi rmed [id number] ALLERGIES No Known Allergies ENCOUNTERS from 1995 to 2021-01-16 Encounter Location Date Provider Diagnosis [facility] [address] [place] [address] [place] [address] Dec, Carol Mayes Encounter for sup ervision of normal first in third trimester Z34.03 and 38 weeks gestation of Z3A.38 IMMUNIZATIONS Vaccine Route Administration Date Status TDAP 0.5mL Boostrix IM Intramuscular Dec 15, 2020 Administere d SOCIAL HISTORY Tobacco Use: Social History Observation Description Date Details (start date - stop date) Former Smoker Sex Assigned At : Social History Observation Description Sex Assigned At Unknown Alcohol Screening: Question Answer Notes Did you have a drink containing alcohol in the past year? No Points 0 Interpretation Negative Tobacco Use: Question Answer Notes Are you a: former smoker How long has it been since you last smoked? 1-5 years REASON FOR REFERRAL No Information VITAL SIGNS Weight 172.6 lbs Dec, Weight-kg 78.29 kg Dec, Height 65 in Dec, BMI 28.722 kg/m2 Dec, Blood pressure systolic 116 mm Hg Dec, Blood pressure diastolic 70 mm Hg Dec, MEDICATIONS Medication SIG (Take, Route, Frequency, Duration) Notes Start Da te End Date Status Ferrous Sulfate 325 (65 Fe) MG 1 tablet Orally Once a day for 60 day(s) Oct, Active Vitamin C 500 MG as directed Orally Jun, Active Vitamin D 50 MCG (2000 UT) 1 capsule Orally Once a day for 30 da y(s) Jun, Active Iron Active metFORMIN HCl ER 500 MG TAKE 2 TABLETS BY MOUTH TWICE DAILY for 90 Active Ferrous Sulfate 325 (65 Fe) MG 1 tablet Orally Once a day Not-Taking Hair Skin & Nails Gummies 1250-7.5-7.5 MCG-MG-UNT as directed Orally Active 28-0.8 MG 1 tablet Orally Once a day for 30 day(s) Jun, Active PROCEDURES No Information RESULTS No Results REASON FOR VISIT 1WK PN MEDICAL (GENERAL) HISTORY Type Description Date Medical History PCOS Surgical History ovarian cystectomy 06/2012 Goals Section No Information Health Concerns No Information MEDICAL EQUIPMENT No Information MENTAL STATUS No Information FUNCTIONAL STATUS No Information ASSESSMENTS Encounter Date Diagnosis Assessment Notes Treatment Notes Treatm ent Clinical Notes Dec, 38 weeks gestation of (ICD-10 - Z3A.38 ) Dec, Encounter for supervision of normal first in third trimester (ICD-10 - Z34.03) PLAN OF TREATMENT Next Appt Details 1 Week Reason:- Routine follow up Provider Name:Carol Mayes, 2021-01-22 08:00:00 AM, [address] [facility], , [place], [address], Follow Up:1 Week- Routine follow up Insurance Providers Payer Name Payer Address Payer Phone Insured Name Patient Relati onship to Insured Coverage Start Date Coverage End Date [facility] [address] [facility] [id number] CHRISTIANNE ROBERTS
--- OUTSIDE RECORDS SUMMARY | 2021-01-26 02:04 | CCD ---
Author Author [facility] Organization [facility] Address Unknown Phone Unavailable Care Team Providers Care Lead Cargo Mover Name Role Phone Anabel Rose Unavailable PROBLEMS Type Condition ICD9-CM Code [id number] Code Onset Dates Condition S tatus W/U Status Risk SNOMED Code Notes Problem Anemia complicating , third trimester O99 .013 Active confirmed 81206992 Problem Iron deficiency anemia, unspecified iron deficiency an emia type D50.9 Active confirmed 09901601 Problem Supervision of other normal Z34.80 Ac tive confirm 898765209 Problem 11 weeks gestation of Z3A.11 Active confi rmed [id number] ALLERGIES No Known Allergies ENCOUNTERS from 1995 to 2021-01-05 Encounter Location Date Provider Diagnosis [facility] [phone] [place] [address] Dec, Anabel Rose Uterine size date di screpancy O26.849 IMMUNIZATIONS Vaccine Route Administration Date Status TDAP [...] FOR REFERRAL No Information VITAL SIGNS Weight 170.2 lbs Dec, Weight-kg 77.2 kg Dec, Height 65 in 11 Dec, 2020 BMI 28.323 kg/m2 Dec, Blood pressure systolic 112 mm Hg Dec, Blood pressure diastolic 70 [...] Information RESULTS No Results REASON FOR VISIT 1 WK PN MEDICAL (GENERAL) HISTORY Type Description Date Medical History PCOS Surgical History ovarian cystectomy 06/2012 Goals Section No Information Health Concerns No Information MEDICAL EQUIPMENT No Information MENTAL STATUS No Information FUNCTIONAL STATUS No Information ASSESSMENTS Encounter Date Diagnosis Assessment Notes Treatment Notes Treatm ent Clinical Notes Dec, Uterine size date discrepancy (ICD-10 - O26.849) PLAN OF TREATMENT Treatment Notes Test Name Order Date [facility] OBS FOLLOW UP OR REPEAT 2021-01-05 Next Appt Details 1 Week Reason: Provider Name:Carol Mayes, 2021-01-14 08:40:00 AM, [address] [facility], , [place], [address], Insurance Providers Payer Name Payer Address Payer Phone Insured Name Patient Relati onship to Insured Coverage Start Date Coverage End Date [facility] [address] [facility] [id number] Pranay HERNANDEZCHRISTIANNE
--- OUTSIDE RECORDS SUMMARY | 2021-01-26 02:04 | CCD ---
Author Author [facility] Organization [facility] Address Unknown Phone Unavailable Care Team Providers Care Referral And Information Aide Name Role Phone Carol Mayes Unavailable PROBLEMS Type Condition ICD9-CM Code KSK43-CZ Code Onset Dates Condition S tatus W/U Status Risk SNOMED Code Notes Problem Anemia complicating , third trimester O99 .013 Active confirmed 48943312 Problem Iron deficiency anemia, unspecified iron deficiency an emia type D50.9 Active confirmed 40588948 Problem Supervision of other normal Z34.80 Ac tive confirm 829716098 Problem 11 weeks gestation of Z3A.11 Active confi rmed [id number] ALLERGIES No Known Allergies ENCOUNTERS from 1995 to 2021-01-15 Encounter Location Date Provider Diagnosis [facility] [address] [place] [address] [place] [address] Dec, Carol Mayes IMMUNIZATIONS Vaccine Route Administration Date Status TDAP [...] REASON FOR REFERRAL No Information VITAL SIGNS No information MEDICATIONS Medication SIG (Take, Route, Frequency, Duration) [...] Information RESULTS No Results REASON FOR VISIT appt MEDICAL (GENERAL) HISTORY Type Description Date Medical History PCOS Surgical History ovarian cystectomy 06/2012 Goals Section No Information Health Concerns No Information MEDICAL EQUIPMENT No Information MENTAL STATUS No Information FUNCTIONAL STATUS No Information ASSESSMENTS No Information PLAN OF TREATMENT Next Appt Details Provider Name:Carol [facility] home, 2021-01-22 08:00:00 AM, [address] [facility], , [place], [address], Insurance Providers Payer Name Payer Address Payer Phone Insured Name Patient Relati onship to Insured Coverage Start Date Coverage End Date [facility] [address] [facility] [id number] [facility]
--- OUTSIDE RECORDS SUMMARY | 2021-01-26 02:04 | CCD ---
Author Author [facility] Organization [facility] Address Unknown Phone Unavailable Care Team Providers Care Insurance Attorney Name Role Phone Carol Mayes Unavailable PROBLEMS Type Condition ICD9-CM Code DIX65-KN Code Onset Dates Condition S tatus W/U Status Risk SNOMED Code Notes Problem Anemia complicating , third trimester O99 .013 Active confirmed 89212872 Problem Iron deficiency anemia, unspecified iron deficiency an emia type D50.9 Active confirmed 61175924 Problem Supervision of other normal Z34.80 Ac tive confirm 200911616 Problem 11 weeks gestation of Z3A.11 Active confi rmed [id number] ALLERGIES No Known Allergies ENCOUNTERS from 1995 to 2021-01-07 Encounter Location Date Provider Diagnosis [facility] [address] [place] [address] [place] [address] Dec, Carol Mayes IMMUNIZATIONS Vaccine Route Administration [...] Information RESULTS No Results REASON FOR VISIT APPT MEDICAL (GENERAL) HISTORY Type Description Date Medical History PCOS Surgical History ovarian cystectomy 06/2012 Goals Section No Information Health Concerns No Information MEDICAL EQUIPMENT No Information MENTAL STATUS No Information FUNCTIONAL STATUS No Information ASSESSMENTS No Information PLAN OF TREATMENT Next Appt Details [facility] 2021-01-15 09:00:00 AM, [address] [facility], , [place], [address], Insurance Providers Payer Name Payer Address Payer Phone Insured Name Patient Relati onship to Insured Coverage Start Date Coverage End Date [facility] [address] [facility] [id number] [facility]
--- OUTSIDE RECORDS SUMMARY | 2021-01-26 02:05 | CCD ---
Author Author [facility] Organization [facility] Address Unknown Phone Unavailable Care Team Providers Care Railroad Maintenance Clerk Name Role Phone Carol Mayes Unavailable PROBLEMS Type Condition ICD9-CM Code ZWM93-AV Code Onset Dates Condition S tatus W/U Status Risk SNOMED Code Notes Problem 11 weeks gestation of Z3A.11 Active confi rmed 24711642 Problem Supervision of other normal Z34.80 Ac tive confirm [id number] ALLERGIES No Known Allergies ENCOUNTERS from 1995 to 2020-10-31 Encounter Location Date Provider Diagnosis [facility] [address] [place] [address] [place] [address] Oct, Carol Mayes Second trimester Z33.1 IMMUNIZATIONS No Information SOCIAL HISTORY Tobacco Use: Social History Observation Description Date Details (start date - stop date) Former Smoker Sex Assigned At : Social History Observation Description Sex Assigned At Unknown Tobacco Use: Question Answer Notes Are you a: former smoker How long has it been since you last smoked? 1-5 years REASON FOR REFERRAL No Information VITAL SIGNS No information MEDICATIONS Medication SIG (Take, Route, Frequency, Duration) Notes Start Da te End Date Status Hair Skin & Nails Gummies 1250-7.5-7.5 MCG-MG-UNT as directed Orally Active metFORMIN HCl ER 500 MG TAKE 2 TABLETS BY MOUTH TWICE DAILY for 90 Active 28-0.8 MG 1 tablet Orally Once a day for 30 day(s) Jun, Active Vitamin D 50 MCG (1999) 1 capsule Orally Once a day for 30 da y(s) 13 Apr, 2021 Active Ferrous Sulfate 325 (65 Fe) MG 1 tablet Orally Once a day Not-Taking Vitamin C 500 MG as directed Orally Jun, Active PROCEDURES No Information RESULTS No Results REASON FOR VISIT Medication Refill Request MEDICAL (GENERAL) HISTORY Type Description Date Medical History PCOS Surgical History ovarian cystectomy 06/2012 Goals Section No Information Health Concerns No Information MEDICAL EQUIPMENT No Information MENTAL STATUS No Information FUNCTIONAL STATUS No Information ASSESSMENTS Encounter Date Diagnosis Assessment Notes Treatment Notes Treatm ent Clinical Notes Oct, Second trimester (ICD-10 - Z33.1) PLAN OF TREATMENT Medication Medication Name Sig Start Date Stop Date metFORMIN HCl ER 500 MG TAKE 2 TABLETS BY MOUTH TWICE DAILY for 90 Next Appt Details Provider Name:Kandice Ayala, 2020-10 10:00:00 AM, [address] [facility], , [place], [address], Insurance Providers Payer Name Payer Address Payer Phone Insured Name Patient Relati onship to Insured Coverage Start Date Coverage End Date [facility] [address] [facility] [id number] [facility]
--- OUTSIDE RECORDS SUMMARY | 2021-01-26 02:05 | CCD ---
Author Author [facility] Organization [facility] Address Unknown Phone Unavailable Care Team Providers Care Magnetic Resonance Imaging Coordinator Name Role Phone Zac Ellis Unavailable PROBLEMS Type Condition ICD9-CM Code ZQA97-KK Code Onset Dates Condition S tatus W/U Status Risk SNOMED Code Notes Problem Anemia complicating , third trimester O99 .013 Active confirmed 48432246 Problem Iron deficiency anemia, unspecified iron deficiency an emia type D50.9 Active confirmed 72386003 Problem Supervision of other normal Z34.80 Ac tive confirm 177313825 Problem 11 weeks gestation of Z3A.11 Active confi rmed [id number] ALLERGIES No Known Allergies ENCOUNTERS from 1995 to 2020-12-25 Encounter Location Date Provider Diagnosis [facility] [address] [place] [address] [place] [address] Nov, Zacisabel Ellis Normal first pregnan cy in third trimester Z34.03 ; 34 weeks gestation of Z3A.34 and Encounter for immunization Z23 IMMUNIZATIONS Vaccine Route Administration Date Status TDAP [...] FOR REFERRAL No Information VITAL SIGNS Weight 167 lbs Nov, Weight-kg 75.75 kg Nov, Height 65 in Nov, BMI 27.79 kg/m2 Nov, Blood pressure systolic 110 mm Hg Nov, Blood pressure diastolic 60 mm Hg Nov, MEDICATIONS Medication SIG (Take, Route, Frequency, Duration) Notes Start Da te End Date Status Vitamin C 500 MG as directed Orally Jun, Active Ferrous Sulfate 325 (65 Fe) MG 1 tablet Orally Once a day for 60 day(s) Oct, Active 28-0.8 MG 1 tablet Orally Once a day for 30 day(s) Jun, Active metFORMIN HCl ER 500 MG TAKE 2 TABLETS BY MOUTH TWICE DAILY for 90 Active Hair Skin & Nails Gummies 1250-7.5-7.5 MCG-MG-UNT as directed Orally Active Vitamin D 50 MCG (2000 UT) 1 capsule Orally Once a day for 30 da y(s) Jun, Active Ferrous Sulfate 325 (65 Fe) MG 1 tablet Orally Once a day Not-Taking Iron Active PROCEDURES from 1995 to 2020-12-25 Procedure Date Ordered Result Body Site Imm: Boostrix 0.5mL IM TDAP 2020-12-15 N/A RESULTS No Results REASON FOR VISIT 2 WK PN MEDICAL (GENERAL) HISTORY Type Description Date Medical History PCOS Surgical History ovarian cystectomy 06/2012 Goals Section No Information Health Concerns No Information MEDICAL EQUIPMENT No Information MENTAL STATUS No Information FUNCTIONAL STATUS No Information ASSESSMENTS Encounter Date Diagnosis Assessment Notes Treatment Notes Treatm ent Clinical Notes Nov, Normal first in third trimester (ICD-1 0 - Z34.03) Nov, 34 weeks gestation of (ICD-10 - Z3A.34 ) Nov, Encounter for immunization (ICD-10 - Z23) PLAN OF TREATMENT Next Appt Details 2 Weeks Reason:PN Provider Name:Jose nEriquez, 2020-12-29 09:15:00 AM, [address] [facility], , [place], [address], Follow Up:2 WeeksPN Insurance Providers Payer Name Payer Address Payer Phone Insured Name Patient Relati onship to Insured Coverage Start Date Coverage End Date [facility] [address] [facility] [id number] Pranay HERNANDEZCHRISTIANNE
--- OUTSIDE RECORDS SUMMARY | 2021-01-26 02:05 | CCD ---
Author Author [facility] Organization [facility] Address Unknown Phone Unavailable Care Team Providers Care Insurance Sales Manager Name Role Phone Kandice Ayala Unavailable PROBLEMS Type Condition ICD9-CM Code TRX28-CX Code Onset Dates Condition S tatus W/U Status Risk SNOMED Code Notes Problem 11 weeks gestation of Z3A.11 Active confi rmed 91643349 Problem Anemia complicating , third trimester O99 .013 Active confirmed 17478486 Problem Supervision of other normal Z34.80 Ac tive confirm [id number] ALLERGIES No Known Allergies ENCOUNTERS from 1995 to 2020-11-12 Encounter Location Date Provider Diagnosis [facility] [address] [place] [address] [place] [address] Oct, Kandice Ayala 29 weeks gestation o f Z3A.29 and Anemia complicating , third trimester O99.013 IMMUNIZATIONS No Information SOCIAL HISTORY Tobacco Use: [...] FOR REFERRAL No Information VITAL SIGNS Weight 160.4 lbs Oct, Height 65 in Oct, BMI 26.69 kg/m2 Oct, Blood pressure systolic 104 mm Hg Oct, Blood pressure diastolic 60 mm Hg Oct, MEDICATIONS Medication SIG (Take, Route, Frequency, Duration) Notes Start Da te End Date Status metFORMIN HCl ER 500 MG TAKE 2 TABLETS BY MOUTH TWICE DAILY for 90 Active Vitamin C 500 MG as directed Orally Jun, Active Ferrous Sulfate 325 (65 Fe) MG 1 tablet Orally Once a day for 60 day(s) Oct, Active Iron Active Hair Skin & Nails Gummies 1250-7.5-7.5 MCG-MG-UNT as directed Orally Active Ferrous Sulfate 325 (65 Fe) MG 1 tablet Orally Once a day Not-Taking Vitamin D 50 MCG (1999 UT) 1 capsule Orally Once a day for 30 da y(s) Jun, Active 28-0.8 MG 1 tablet Orally Once a day for 30 day(s) Jun, Active PROCEDURES No Information RESULTS No Results REASON FOR VISIT 4 wk pn MEDICAL (GENERAL) HISTORY Type Description Date Medical History PCOS Surgical History ovarian cystectomy 06/2012 Goals Section No Information Health Concerns No Information MEDICAL EQUIPMENT No Information MENTAL STATUS No Information FUNCTIONAL STATUS No Information ASSESSMENTS Encounter Date Diagnosis Assessment Notes Treatment Notes Treatm ent Clinical Notes Oct, 29 weeks gestation of (ICD-10 - Z3A.29 ) Oct, Anemia complicating , third tri mester (ICD-10 - O99.013) PLAN OF TREATMENT Medication Medication Name Sig Start Date Stop Date Ferrous Sulfate 325 (65 Fe) MG 1 tablet Orally Once a day fo r 60 day(s) Oct, Next Appt Details 3 Weeks Reason:PN Provider Name:Chasidy Sun, 2020-11-28 03:00:00 PM, [address] [place] [address] , [place], [address], Provider Name:Zac Ellis, 09:00:00 AM, [address] [facility], , [place], [address], Follow Up:3 WeeksPN Insurance Providers Payer Name Payer Address Payer Phone Insured Name Patient Relati onship to Insured Coverage Start Date Coverage End Date [facility] [address] [facility] [id number] [facility]
--- OUTSIDE RECORDS SUMMARY | 2021-01-26 02:05 | CCD ---
Author Author [facility] Organization [facility] Address Unknown Phone Unavailable Care Team Providers Care Office Messenger Name Role Phone Nwogu, U Bean DO Unavailable Unavailable Nwogu, U Bean DO Unavailable Unavailable Nwogu, U Bean DO Unavailable Unavailable Nwogu, U Bean DO Unavailable Unavailable Nwogu, U Bean DO Unavailable Unavailable Nwogu, U Bean DO Unavailable Unavailable Nwogu, U Bean DO Unavailable Unavailable Nwogu, U Bean DO Unavailable Unavailable Nwogu, U Bean DO Unavailable Unavailable Nwogu, U Bean DO Unavailable Unavailable Nwogu, U Bean DO Unavailable Unavailable Nwogu, U Bean DO Unavailable Unavailable Nwogu, U Bean DO Unavailable Unavailable Nwogu, U Bean DO Unavailable Unavailable Nwogu, U Bean DO Unavailable Unavailable Nwogu, U Bena DO Unavailable Unavailable Nwogu, U Bean DO Unavailable Unavailable Nwogu, U Bean DO Unavailable Unavailable Nwogu, U Bean DO Unavailable Unavailable Nwogu, U Bean DO Unavailable Unavailable NO, PCP Unavailable Unavailable MAHAN, BELGICA SIVA INSPECTION SUPERVISOR Unavailable Unavailable MAHAN, BELGICA SIVA INSPECTION SUPERVISOR Unavailable Unavailable MAHAN, BELGICA SIVA INSPECTION SUPERVISOR Unavailable Unavailable MAHAN, BELGICA SIVA INSPECTION SUPERVISOR Unavailable Unavailable MAHAN, BELGICA SIVA INSPECTION SUPERVISOR Unavailable Unavailable MAHAN, BELGICA SIVA INSPECTION SUPERVISOR Unavailable Unavailable MAHAN, BELGICA SIVA INSPECTION SUPERVISOR Unavailable Unavailable MAHAN, BELGICA SIVA INSPECTION SUPERVISOR Unavailable Unavailable MAHAN, BELGICA SIVA INSPECTION SUPERVISOR Unavailable Unavailable MAHAN, BELGICA SIVA INSPECTION SUPERVISOR Unavailable Unavailable MAHAN, BELGICA SIVA INSPECTION SUPERVISOR Unavailable Unavailable MAHAN, BELGICA SIVA INSPECTION SUPERVISOR Unavailable Unavailable MAHAN, BELGICA SIVA INSPECTION SUPERVISOR Unavailable Unavailable MAHAN, BELGICA SIVA INSPECTION SUPERVISOR Unavailable Unavailable MAHAN, BELGICA SIVA INSPECTION SUPERVISOR Unavailable Unavailable MAHAN, BELGICA SIVA INSPECTION SUPERVISOR Unavailable Unavailable MAHAN, BELGICA SIVA INSPECTION SUPERVISOR Unavailable Unavailable MAHAN, BELGICA SIVA INSPECTION SUPERVISOR Unavailable Unavailable MAHAN, BELGICA SIVA INSPECTION SUPERVISOR Unavailable Unavailable MAHAN, BELGICA SIVA INSPECTION SUPERVISOR Unavailable Unavailable MAHAN, BELGICA SIVA INSPECTION SUPERVISOR Unavailable Unavailable MAHAN, BELGICA SIVA INSPECTION SUPERVISOR Unavailable Unavailable MAHAN, BELGICA SIVA INSPECTION SUPERVISOR Unavailable Unavailable MARA, F CONRADO Unavailable Unavailable MARA, F CONRADO Unavailable Unavailable MARA, F CONRADO Unavailable Unavailable MARA, F CONRADO Unavailable Unavailable MARA F CONRADO Unavailable Unavailable MARA, F CONRADO Unavailable Unavailable MARA, F CONRADO Unavailable Unavailable MARA, F CONRADO MD Unavailable Unavailable MARA, F CONRADO Unavailable Unavailable MARA, F CONRADO MD Unavailable Unavailable MARA, F CONRADO Unavailable Unavailable MARA, F CONRADO Unavailable Unavailable MARA, F CONRADO MD Unavailable Unavailable MARA, F CONRADO Unavailable Unavailable MARA, F CONRADO MD Unavailable Unavailable MARA, F CONRADO Unavailable Unavailable MARA, F CONRADO MD Unavailable Unavailable MARA, F CONRADO Unavailable Unavailable MARA, F CONRADO MD Unavailable Unavailable MARA, F CONRADO MD Unavailable Unavailable MARA, F CONRADO MD Unavailable Unavailable MARA, F CONRADO MD Unavailable Unavailable MARA, F CONRADO MD Unavailable Unavailable MARA, F CONRADO MD Unavailable Unavailable MARA, F CONRADO MD Unavailable Unavailable MARA, F CONRADO MD Unavailable Unavailable MARA, F CONRADO MD Unavailable Unavailable MARA, F CONRADO MD Unavailable Unavailable MARA, F CONRADO MD Unavailable Unavailable MARA, F CONRADO MD Unavailable Unavailable MARA, F CONRADO MD Unavailable Unavailable Re-disclosure Warning The records that you are about to access may contain information from federally-assisted alcohol or drug abuse programs. If such information is present, then the following federally mandated warning applies: This information has been disclosed to you from records protected by federal confidentiality rules (42 CFR part 2). The federal rules prohibit you from making any further disclosure of this information unless further disclosure is expressly permitted by the written consent of the person to whom it pertains or as otherwise permitted by 42 CFR part 2. A general authorization for the release of medical or other information is NOT sufficient for this purpose. The Federal rules restrict any use of the information to criminally investigate or prosecute any alcohol or drug abuse patient.The records that you are about to access may contain highly sensitive health information, the redisclosure of which is protected by Article 27-F of the [facility] Public Health law. If you continue you may have access to information: Regarding HIV / AIDS; Provided by facilities licensed or operated by the [facility] Office of Mental Health; or Provided by the [facility] Office for People With Developmental Disabilities. If such information is present, then the following [facility] mandated warning applies: This information has been disclosed to you from confidential records which are protected by state law. State law prohibits you from making any further disclosure of this information without the specific written consent of the person to whom it pertains, or as otherwise permitted by law. Any unauthorized further disclosure in violation of state law may result in a fine or assisted sentence or both. A general authorization for the release of medical or other information is NOT sufficient authorization for further disc losure. Family History Family Member Name Family Member Gender Family Member Status Date o f Status Description Data Source(s) Unknown Male Problem MEDENT ([facility] Unknown Unknown Problem MED[facility] ([facility] ) Encounters Encounter Providers Location Date Indications Data Source(s ) Unknown [address] [facility] [address] 01/23/2021 12:00:00 AM EDT eCW1 ([facility]) ([facility]) [facility] [address] [place] [address] 01/15/2021 12:00:00 AM EDT eCW1 ([facility]) Unknown [address] [facility] [address] 01/15/2021 12:00:00 AM EDT eCW1 ([facility]) Unknown [address] [facility] [address] 01/07/2021 12:00:00 AM EDT eCW1 ([facility]) (WC ESTOB) [facility] [address] [place] [address] 01/05/2021 12:00:00 AM EDT eCW1 ([facility]) (WC ESTOB) [facility] [address] [place] [address] 12/15/2020 12:00:00 AM EDT eCW1 ([facility]) (WC ESTOB) [facility] [address] [place] [address] 11/12/2020 12:00:00 AM EDT eCW1 ([facility]) Unknown [address] [facility] [address] 10/31/2020 12:00:00 AM EDT eCW1 ([facility]) (WC ESTOB) [facility] [address] [place] [address] 10/15/2020 12:00:00 AM EDT eCW1 ([facility]) (WC ESTOB) [facility] [address] [place] [address] 09/16/2020 12:00:00 AM EDT eCW1 ([facility]) [place] [address] [facility] [address] 09/03/2020 12:00:00 AM EDT eCW1 ([facility]) Unknown [address] [facility] [address] 09/03/2020 12:00:00 AM EDT eCW1 ([facility]) ( ESTOB) [facility] Est OB [address] [place] [address] 08/05/2020 12:00:00 AM EDT eCW1 ([facility]) ( NEWOB) [facility] New OB Visit [address] [place] [address] 07/08/2020 12:00:00 AM EDT eCW1 ([facility]) Outpatient Attender: Bean Warren DO 06/2020 10:47:00 AM EST - 05/29/2020 10:47:00 AM EST [facility] Outpatient Attender: CONRADO TERRY MDConsultant: PCP NO 04/08/2020 10:45:00 AM EST - 04/08/2020 10:45:00 AM EST [facility] Outpatient Attender: CONRADO TERRY MD Family Practice 03/28 09:45:00 AM EST [facility] ([facility]) Outpatient Attender: CONRADO TERRY MDConsultant: PCP NO 04/04/2020 10:15:00 AM EST - 04/04/2020 11:15:00 AM EST [facility] Patient discharged. Outpatient Attender: CONRADO TERRY MDConsultant: PCP NO 03/10/2020 04:12:00 PM EST - 03/10/2020 04:12:00 PM EST [facility] Outpatient Attender: CONRADO TERRY MD Family Practice 02/25 03:15:00 PM EST [facility] ([facility]) Outpatient Attender: CONRADO TERRY MDConsultant: PCP NO 02/14/2020 03:37:00 PM EST - 02/14/2020 03:37:00 PM EST [facility] Outpatient Attender: CONRADO TERRY MD Family Practice 01/26 03:00:00 PM EST [facility] ([facility]) Outpatient Attender: SIVA MAHAN NPConsultant: PCP NO 12/31/2019 03:07:00 PM EDT - 12/31/2019 04:07:00 [facility] SIVA MAHAN NP Family Practice 12/18/2019 04 :00:00 PM EDT MEDENT ([facility]) Outpatient Attender: SIVA MAHAN INSPECTION SUPERVISOR 020 03:30:00 PM EDT - 12/18/2019 03:30:00 PM EDT [facility] Immunizations Vaccine Date Status Description Data Source(s) Tdap 12/15/2020 09:39:00 AM EDT completed e CW1 ([facility]) Tdap 12/15/2020 09:39:00 AM EDT completed e CW1 ([facility]) Tdap 12/15/2020 09:39:00 AM EDT completed e CW1 ([facility]) Tdap 12/15/2020 09:39:00 AM EDT completed e CW1 ([facility]) Tdap 12/15/2020 09:39:00 AM EDT completed e CW1 ([facility]) Tdap 12/15/2020 09:39:00 AM EDT completed e CW1 ([facility]) Medications Medication Brand Name Start Date Product Form Dose Route Admi nistrative Instructions Pharmacy Instructions Status Indications Reaction Description Data Source(s) ferrous sulfate 325 MG Oral Tablet Ferrous Sulfate 325 (65 Fe) MG Ferrous Sulfate 325 (65 Fe) MG 11/12/2020 12:00:00 AM EDT 1.0 {tablet} active Ferrous Sulfate 325 (65 Fe) MG eCW1 ([facility]) ferrous sulfate 325 MG Oral Tablet Ferrous Sulfate 325 (65 Fe) MG Ferrous Sulfate 325 (65 Fe) MG 11/12/2020 12:00:00 AM EDT 1.0 {tablet} active Ferrous Sulfate 325 (65 Fe) MG eCW1 ([facility]) ferrous sulfate 325 MG Oral Tablet Ferrous Sulfate 325 (65 Fe) MG Ferrous Sulfate 325 (65 Fe) MG 11/12/2020 12:00:00 AM EDT 1.0 {tablet} active Ferrous Sulfate 325 (65 Fe) MG eCW1 ([facility]) ferrous sulfate 325 MG Oral Tablet Ferrous Sulfate 325 (65 Fe) MG Ferrous Sulfate 325 (65 Fe) MG 11/12/2020 12:00:00 AM EDT 1.0 {tablet} active Ferrous Sulfate 325 (65 Fe) MG eCW1 ([facility]) ferrous sulfate 325 MG Oral Tablet Ferrous Sulfate 325 (65 Fe) MG Ferrous Sulfate 325 (65 Fe) MG 11/12/2020 12:00:00 AM EDT 1.0 {tablet} active Ferrous Sulfate 325 (65 Fe) MG eCW1 ([facility]) ferrous sulfate 325 MG Oral Tablet Ferrous Sulfate 325 (65 Fe) MG Ferrous Sulfate 325 (65 Fe) MG 11/12/2020 12:00:00 AM EDT 1.0 {tablet} active Ferrous Sulfate 325 (65 Fe) MG eCW1 ([facility]) ferrous sulfate 325 MG Oral Tablet Ferrous Sulfate 325 (65 Fe) MG Ferrous Sulfate 325 (65 Fe) MG 11/12/2020 12:00:00 AM EDT 1.0 {tablet} active Ferrous Sulfate 325 (65 Fe) MG eCW1 ([facility]) Vitamin C 500 MG Vitamin C 500 MG 07/08/2020 12:00:00 AM EDT active Vitamin C 500 MG eCW1 ([facility]) 28-0.8 MG 28-0.8 MG 07/08/2020 12:00:00 AM EDT 1.0 {tablet} active 28-0.8 MG e CW1 ([facility]) 28-0.8 MG 28-0.8 MG 07/08/2020 12:00:00 AM EDT 1.0 {tablet} active 28-0.8 MG e CW1 ([facility]) Vitamin C 500 MG Vitamin C 500 MG 07/08/2020 12:00:00 AM EDT active Vitamin C 500 MG eCW1 ([facility]) Vitamin C 500 MG Vitamin C 500 MG 07/08/2020 12:00:00 AM EDT active Vitamin C 500 MG eCW1 ([facility]) Vitamin C 500 MG Vitamin C 500 MG 07/08/2020 12:00:00 AM EDT active Vitamin C 500 MG eCW1 ([facility]) 28-0.8 MG 28-0.8 MG 07/08/2020 12:00:00 AM EDT 1.0 {tablet} active 28-0.8 MG e CW1 ([facility]) Vitamin C 500 MG Vitamin C 500 MG 07/08/2020 12:00:00 AM EDT active Vitamin C 500 MG eCW1 ([facility]) Vitamin C 500 MG Vitamin C 500 MG 07/08/2020 12:00:00 AM EDT active Vitamin C 500 MG eCW1 ([facility]) Vitamin D 50 MCG (1999 UT) Vitamin D 50 MCG (1999 UT) 2020 12:00:00 AM EDT 1.0 {capsule} active Vitamin D 50 MCG (1999 UT) eCW1 ([facility]) Vitamin C 500 MG Vitamin C 500 MG 07/08/2020 12:00:00 AM EDT active Vitamin C 500 MG eCW1 ([facility]) Vitamin C 500 MG Vitamin C 500 MG 07/08/2020 12:00:00 AM EDT active Vitamin C 500 MG eCW1 ([facility]) Vitamin C 500 MG Vitamin C 500 MG 07/08/2020 12:00:00 AM EDT active Vitamin C 500 MG eCW1 ([facility]) Vitamin D 50 MCG (1999 UT) Vitamin D 50 MCG (1999 UT) 2020 12:00:00 AM EDT 1.0 {capsule} active Vitamin D 50 MCG (1999 UT) eCW1 ([facility]) Vitamin D 50 MCG (1999 UT) Vitamin D 50 MCG (1999 UT) 2020 12:00:00 AM EDT 1.0 {capsule} active Vitamin D 50 MCG (1999 UT) eCW1 ([facility]) Vitamin D 50 MCG (1999 UT) Vitamin D 50 MCG (1999 UT) 2020 12:00:00 AM EDT 1.0 {capsule} active Vitamin D 50 MCG (1999 UT) eCW1 ([facility]) Vitamin C 500 MG Vitamin C 500 MG 07/08/2020 12:00:00 AM EDT active Vitamin C 500 MG eCW1 ([facility]) Vitamin D 50 MCG (1999 UT) Vitamin D 50 MCG (1999 UT) 2020 12:00:00 AM EDT 1.0 {capsule} active Vitamin D 50 MCG (1999 UT) eCW1 ([facility]) 28-0.8 MG 28-0.8 MG 07/08/2020 12:00:00 AM EDT 1.0 {tablet} active 28-0.8 MG e CW1 ([facility]) 28-0.8 MG 28-0.8 MG 07/08/2020 12:00:00 AM EDT 1.0 {tablet} active 28-0.8 MG e CW1 ([facility]) Vitamin D 50 MCG (1999 UT) Vitamin D 50 MCG (1999 UT) 2020 12:00:00 AM EDT 1.0 {capsule} active Vitamin D 50 MCG (1999 UT) eCW1 ([facility]) Vitamin D 50 MCG (1999 UT) Vitamin D 50 MCG (1999 UT) 2020 12:00:00 AM EDT 1.0 {capsule} active Vitamin D 50 MCG (1999 UT) eCW1 ([facility]) 28-0.8 MG 28-0.8 MG 07/08/2020 12:00:00 AM EDT 1.0 {tablet} active 28-0.8 MG e CW1 ([facility]) Vitamin C 500 MG Vitamin C 500 MG 07/08/2020 12:00:00 AM EDT active Vitamin C 500 MG eC ([facility]) Vitamin D 50 MCG (1999 UT) Vitamin D 50 MCG (1999 UT) 2020 12:00:00 AM EDT 1.0 {capsule} active Vitamin D 50 MCG (1999 UT) eCW1 ([facility]) 28-0.8 MG 28-0.8 MG 07/08/2020 12:00:00 AM EDT 1.0 {tablet} active 28-0.8 MG e CW1 ([facility]) Vitamin D 50 MCG (1999 UT) Vitamin D 50 MCG (1999 UT) 2020 12:00:00 AM EDT 1.0 {capsule} active Vitamin D 50 MCG (1999 UT) eCW1 ([facility]) 28-0.8 MG 28-0.8 MG 07/08/2020 12:00:00 AM EDT 1.0 {tablet} active 28-0.8 MG e CW1 ([facility]) Vitamin D 50 MCG (1999 UT) Vitamin D 50 MCG (1999 UT) 2020 12:00:00 AM EDT 1.0 {capsule} active Vitamin D 50 MCG (1999 UT) eCW1 ([facility]) Vitamin D 50 MCG (1999 UT) Vitamin D 50 MCG (1999 UT) 2020 12:00:00 AM EDT 1.0 {capsule} active Vitamin D 50 MCG (1999 UT) eCW1 ([facility]) 28-0.8 MG 28-0.8 MG 07/08/2020 12:00:00 AM EDT 1.0 {tablet} active 28-0.8 MG e CW1 ([facility]) Vitamin C 500 MG Vitamin C 500 MG 07/08/2020 12:00:00 AM EDT active Vitamin C 500 MG eCW1 ([facility]) Vitamin D 50 MCG (1999 UT) Vitamin D 50 MCG (1999 UT) 2020 12:00:00 AM EDT 1.0 {capsule} active Vitamin D 50 MCG (1999 UT) eCW1 ([facility]) Vitamin C 500 MG Vitamin C 500 MG 07/08/2020 12:00:00 AM EDT active Vitamin C 500 MG eCW1 ([facility]) Vitamin D 50 MCG (1999 UT) Vitamin D 50 MCG (1999 UT) 2020 12:00:00 AM EDT 1.0 {capsule} active Vitamin D 50 MCG (1999 UT) eCW1 ([facility]) 28-0.8 MG 28-0.8 MG 07/08/2020 12:00:00 AM EDT 1.0 {tablet} active 28-0.8 MG e CW1 ([facility]) 28-0.8 MG 28-0.8 MG 07/08/2020 12:00:00 AM EDT 1.0 {tablet} active 28-0.8 MG e CW1 ([facility]) Vitamin D 50 MCG (1999 UT) Vitamin D 50 MCG (1999 UT) 2020 12:00:00 AM EDT 1.0 {capsule} active Vitamin D 50 MCG (1999 UT) eCW1 ([facility]) Vitamin C 500 MG Vitamin C 500 MG 07/08/2020 12:00:00 AM EDT active Vitamin C 500 MG eCW1 ([facility]) 28-0.8 MG 28-0.8 MG 07/08/2020 12:00:00 AM EDT 1.0 {tablet} active 28-0.8 MG e CW1 ([facility]) 28-0.8 MG 28-0.8 MG 07/08/2020 12:00:00 AM EDT 1.0 {tablet} active 28-0.8 MG e CW1 ([facility]) 28-0.8 MG 28-0.8 MG 07/08/2020 12:00:00 AM EDT 1.0 {tablet} active 28-0.8 MG e CW1 ([facility]) NITROFURANTOIN, MACROCRYSTALS 25 MG / Ni trofurantoin, Monohydrate 75 MG Oral Capsule [Macrobid] Macrobid 04/17/2020 12:00:00 AM EST ORAL completed MEDENT ([facility]) Misoprostol 0.2 MG Oral Tablet [Cytotec] Cytotec 03/10/2020 12:00: 00 AM EST completed MEDENT ([facility]) Ibuprofen 800 MG Oral Tablet Ibuprofen 03/10/2020 12:00:00 AM EST ORAL completed MEDENT ([facility]) 24 HR Metformin hydrochloride 500 MG Extended Release Oral Tablet Metformin HCL ER 03/10/2020 12:00:00 AM EST ORAL active MEDENT ([facility]) No Active Medications 12/18/2019 12:00:00 AM EDT completed MEDENT ([facility]) Insurance Providers Payer name Policy type / Coverage type Policy ID Covered constitution party ID Covered constitution party's relationship to urias Policy Urias Plan Information [employer] Health Maintenance Organization (HMO) [id number] [employer]BS [id number] Chi IWA [id number] [facility] [id number] BCBS EMPIRE LIYA DIV [id number] AETNA MEDICARE [id number] SP [id number] EMPIRE BLUE CROSS BLUE SHIELD -O/P HM [id number] [facility] EMPIRE PLAN [id number] AETNA MEDICARE O [id number] S [id number] AETNA [place] [id number] AETNA -O/P [id number] 18 [id number] [employer] B [id number] C LRA [id number] [place] PPO 302/307 [id number] FA2 [id number] BCBS OF [place] 306/806 [id number] FA2 [id number] BC[place] 306/806 [id number] FA2 [id number] [employer] B [id number] C [id number] [employer] B [id number] C IWA [id number] BS Of [facility] Organization ([facility] [id number] Family Dependent [id number] BS Of [facility] ([facility] [id number] Family Dependent [id number] [employer] BCBS [facility] [id number] FA2 [id number] BC BS [facility] FEDERAL B [id number] C [id number] SELF PAY ONLY UNAVAILABLE SP UNAV AILABLE BCBS [facility] [phone]/834 [id number] FA2 [id number] BCBS OF [place] 332/834 [id number] FA2 [id number] [employer] BCBS Medigap Part B [id number] Self NO FAULT [id number] Miladis [id number] NO FAULT UNAVAILABLE UNAVAILA BLE NO FAULT [id number] Miladis [id number] BLUE CROSS OTHER 1 [id number] FA2 [id number] BCBS [facility] 303/803 [id number] FA2 [id number] BCBS [facility] [id number] [address] [place] [address] [id number] Problems, Conditions, and Diagnoses Code Display Name Description Problem Type Effective Dates Data Source(s) N912 Amenorrhea, unspecified Amenorrhea, unspecified Diagno sis 05/29/2020 10:47:00 AM [facility] R300 Dysuria Dysuria Diagnosis 04/08/2020 10:45:00 AM [facility] N978 Female infertility of other origin Female infert ility of other origin Diagnosis 04/04/2020 10:15:00 AM [facility] Z712 Person consulting for explanation of exa mination or test findings Person consulting for explanation of examination or test findings Diagnosis 03/10/2020 04:12:00 PM [facility] E282 Polycystic ovarian syndrome Polycystic ovarian syndrom e Diagnosis 02/14/2020 03:37:00 PM [facility] N8301 Follicular cyst of right ovary Follicular cyst of righ t ovary Diagnosis 12/31/2019 03:07:00 PM [facility] N8302 Follicular cyst of left ovary Follicular cyst of left ovary Diagnosis 12/31/2019 03:07:00 PM EDT [facility] N926 Irregular menstruation, unspecified Irregular me nstruation, unspecified Diagnosis 12/31/2019 03:07:00 PM EDT [facility] D50.9 [id number] Iron deficiency anemia, unspecif ied iron deficiency anemia type Problem 11/27/2020 12:00:00 AM EDT eCW1 ([facility]) O99.013 Anemia in mother complicating , childbirth AND/OR [place]ium Anemia complicating , third trimester Problem 021 12:00:00 AM EDT eCW1 ([facility]) Z3A.11 [id number] 11 weeks gestation of Problem 07/08/2020 12:00:00 AM EDT eCW1 ([facility]) Z34.80 care Supervision of other normal P roblem 07/08/2020 12:00:00 AM EDT eCW1 ([facility]) [id number] Irregular periods Irregular periods Problem 12/18/2019 12:00:00 AM EDT MEDENT ([facility]) Surgeries/Procedures Procedure Description Date Indications Data Source(s) TDAP VACCINE 7/> YR IM 12/15/2020 12:00:00 AM EDT eCW1 ([facility]) Results ID Date Data Source [id number] 05/29/2020 11:21:00 AM EST MEDENT ([facility]) Name Value Range Interpretation Code Description Data La rce(s) Supporting Document(s) Choriogonadotropin.beta subunit ( test) [Pres ence] in Urine Laboratory test result MEDENT ([facility]) ID Date Data Source [id number] 04/25/2020 12:00:00 AM EST [facility] Name Value Range Interpretation Code Description Data La rce(s) Supporting Document(s) SARS-CoV2 Rapid Antigen Positive [facility] and reported by [facility]. ID Date Data Source [id number] 04/08/2020 11:50:00 AM EST MEDENT ([facility]) Name Value Range Interpretation Code Description Data La rce(s) Supporting Document(s) Culture Urine Laboratory test result MEDENT ([facility]) {SPECIMEN TYPE: RANDOM ID Date Data Source [id number] 04/12/2020 04:45:00 PM EST [facility] Name Value Range Interpretation Code Description Data La rce(s) Supporting Document(s) CULTURE URINE [facility] _CULTURE URINE_$$[id number]$$[id number]$$[id number]$$[id number]$$[id number]$$[id number]$$[id number]$$[id number]$$[id number]$$ [id number]$$[id number]$$[id number]$$[id number]$$[id number]$$[id number]$$[id number]$$[id number]$$280573$$[id number]$$ [id number]$$[id number]$$[id number]$$[id number]$$[id number]$$[id number]$$[id number]$$[id number] -- Continued on next page --Patient: HAJA LIZZY Order: [id number] Page 2Culture: CULTURE URINE Status: Final ==== -- Continued on next page --Patient: HAJA LIZZY Order: [id number] Page 2Culture: CULTURE URINE Status: Prelim =====$$[id number]$$[id number] DATE/TIME: 04/12/2020 11:06Culture: CULTURE URINE Status: FinalIsolate 1 Escherichia coli Flag: A . . . . . . .15,000 Colonies/mLCefazolin <=4 ug/mLCefazolin with an ALVIN <=16 predicts susceptibility to the oral agentscefaclor, cefdinir, cefpodoxime, cefprozil, cefuroxime, cephalexin,and loracarbef when used for therapy of uncomplicated urinary tractinfections due to E. coli, Klebsiella pneumoniae, and Proteusmirabilis. Previous result entered on 04/11/2020 01:45 ET Specimen has been received and testing has been initiated.Urine Culture,Comprehensive: [id number] coli Flag: APatient: HAJA BALL Order: [id number] Page 3Culture: CULTURE URINE Status: Perri l ISOLATE 1 Escherichia coli Isolate 1Antibiotic ALVIN IntUnits ug/mL ----Amoxicillin/Clavulanic Acid S S . . . . . .20-8Ampicillin S S . . . . . .28-1Cefepime S S . . . . . .6644-9Ceftriaxone S S . . . . . .141-2Ciprofloxacin S S . . . . . .185-9Ertapenem S S . . . . . .43407-6Gbprewvvnn S S . . . . . .267- 5Imipenem S S . . . . . .279-0Levofloxacin S S . . . . . .77064-8Smmocoerq S S . . . . . .6652-2Nitrofurantoin S S . . . . . .363-2Piperacillin/Tazobactam S S . . . . . .412-7Tetrac ycline S S . . . . . .496-0Tobramycin S S . . . . . .508-2Trimethoprim/Sulfa S S . . . . . .516-5P1 Test performed by: Chris Rasmussen [facility] #: [id number] [address] [id number] [facility] [id number] Director : Paul Pires MD NPI #:Pressure Testing Technician : 04/11/20.0946.XMT.SENT REF 04/12/20.1645.XMT.SENT REF ID Date Data Source [id number] 04/07/2020 09:32:00 AM EST [facility] [address] [place] [address] PHONE: [phone] FAX: [phone] Name .................. : HAJA BALL Acct Number.................. : [id number] ROOM. ................. : MR Number ................... : [id number] Stay type ............. : O/P Discharge Date......... ... : 04/04/20 Admit Date ......... : 04/04/20 Admit Phys .................... : MARA GA Date of ....... : 1995 Family Phys ................... : NO PCP Phone .................. : [phone] Age ................................ : 24 Film# .................. .:[id number] Sex ................................. : F Unsigned transcriptions are preliminary reports and do not represent a medical or legal document [place] & [place] 12680 COMPLETE:04/04/20 13:38 MUNIRA 1756 (REASON FOR PELVIS: INFERTILITY HYSTEROSALPINGOGRAM: INDICATION: Infertility. FINDINGS: The cervical os was catheterized and contrast was administered by Dr. Terry. There is normal filling of the endometrial cavity. Air bubbles are identified. The fallopian tubes are visualized bilaterally and are patent with free spillage bilaterally. IMPRESSION: Patent fallopian tubes bilaterally. Examination dictated by JONNY Waller. Examination was reviewed with Debbie Govea MD, radiologist at the time of this dictation. Electronically Reviewed and Signed By Debbie Govea MD , 04/07/20 09:32, KG Transcribe Initials: DZ , Transcribe Date: 04/05/20 04:17, Dictation Date: Copy for: [address] [place] [address] REC Page 1 of 1 Name Value Range Interpretation Code Description Data La rce(s) Supporting Document(s) ID Date Data Source [id number] 04/04/2020 01:13:00 [place] [address] OPERATIVE SUMMARYNAME: HAJA LIZZY DATE OF : 1995ATTENDING PHYS: CONRADO Terry MD DATE: 04/04/20 MR#: [id number] [id number] PROCEDURE: 04/04/2020RE- PROCEDURAL DIAGNOSIS: Infertility.POST-OPERATIVE DIAGNOSIS: 1. Infertility. 2. Patent fallopian tubes.PROCEDURE: Hysterosalpingogram.SURGEON: Dr. Terry.DESCRIPTION OF PROCEDURE:After consent was reviewed with the patient, she was taken to the fluoroscopy room. She wasplaced in the dorsolithotomy position. A sterile speculum was placed in the vagina, the cervix wasviewed and washed with Betadine solution x3. The hysterosalpingogram catheter was then insertedinto the vagina via the cervix, and the balloon was inflated so as to keep it in place. [id number] cc of the Optiray 350 solution was drawn up in a 20 cc syringe, and this was then attached to theinfusion port of the hysterosalpingogram catheter. Patient was then placed in the supine position.The radiologist was summoned, and fluoroscopy was performed. A moderate amount of resistancewas encountered while inserting the dye, but spillage was noted bilaterally. Patient tolerated theprocedure well, although she did complain of moderate discomfort during the procedure. Motrinwas recommended for the cramps. All instruments were then removed.DD: CONRADO Terry MD 04/04/20 12:32DT: ELTON 04/04/20 13:07DS: CONRADO Terry MD 04/06/20 10:30 1 Name Value Range Interpretation Code Description Data La rce(s) Supporting Document(s) ID Date Data Source [id number] 04/04/2020 10:21:00 AM EST [facility] ([facility]) Name Value Range Interpretation Code Description Data La rce(s) Supporting Document(s) HCG Serum Qual Laboratory test result [facility] ([facility]) .~.~Z01.818 HCG Serum QL Reenter Laboratory test result [facility] ([facility]) .~.~Z01.818 ID Date Data Source [id number] 04/04/2020 11:02:00 AM EST [facility] Name Value Range Interpretation Code Description Data [facility] rce(s) Supporting Document(s) HCG SERUM QUAL NEGATIVE NORMAL: NEGATIVE [facility] HCG SERUM QL REENTER NEGATIVE NORMAL: NEGATIVE [facility] { KIT LOT # [id number] ){ KIT EXP DATE 12/31/20 ){ PROCEDURAL CONTROL VALID ) ID Date Data Source [id number] 03/03/2020 08:40:00 AM EST [facility] ([facility]) Name Value Range Interpretation Code Description Data La rce(s) Supporting Document(s) Progesterone [Mass/volume] in Serum or Plasma 4.14 ng/mL Normal (applies to non-numeric results) [facility] ([facility]) <content>Normal Ranges (ng/ml)</content>
<content>Females :</content>
<content>FOLLICULAR PHASE 0.15- 1.40</content>
<content>LUTEAL PHASE 3.34-25.56</content>
<content>MID-LUTEAL PHASE 4.44- 28.03</content>
<content>POST MENOPAUSAL <0.73</content>
<content></content>
<content> Females :</content>
<content>1st TRIMESTER 11.22- 90.00</content>
<content>2nd TRIMESTER 25.55- 89.40</content>
<content>3rd TRIMESTER 48.40-422.50</content>
<content></content> ID Date Data Source [id number] 01/21/2020 08:30:00 PM EDT [facility] Name Value Range Interpretation Code Description Data La rce(s) Supporting Document(s) SARS coronavirus 2 RNA [facility] This lab was ordered by [facility] and rep orted by [facility]. ID Date Data Source [id number] 01/01/2020 11:55:00 [place] [address] PHONE: [phone] FAX: [phone] Name .................. : HAJA BALL Acct Number.................. : [id number] ROOM. ................. : MR Number ................... : [id number] Stay type ............. : O/P Discharge Date......... ... : 12/31/19 Admit Date ......... : 12/31/19 Admit Phys .................... : MAHAN TIN Date of ....... : 1995 Family Phys ................... : NO PCP Phone .................. : [phone] Age ................................ : 24 Film# .................. .:[id number] Sex ................................. : F Unsigned transcriptions are preliminary reports and do not represent a medical or legal document PELVIC [id number] COMPLETE:12/31/19 15:26 KNB 53943 (REASON FOR PELVIS: IRREGULAR VAGINAL BLEEDING TRANSABDOMINAL PELVIC ULTRASOUND: INDICATION: Irregular vaginal bleeding. FINDINGS: The visualized portions of the urinary bladder appear unremarkable. The bladder volume is 540 cc. The uterus measures 7.5 x 4.5 x 5.9 cm. The endometrium is within normal limits, measuring 9 mm. The right ovary measures 3.7 x 3.1 x 2.3 cm. The left ovary measures 4.1 x 3.0 x 1.9 cm. Follicles are noted bilaterally in the ovaries, the largest measuring 2 cm bilaterally. IMPRESSION: Follicles are noted bilaterally. Examination is otherwise unremarkable. Examination dictated by JONNY Waller. Examination was reviewed with Debbie Govea MD, radiologist at the time of this dictation. Electronically Reviewed and Signed By Debbie Govea MD , 01/01/20 11:55, KGG Transcribe Initials: MARGO , Transcribe Date: 01/01/20 01:13, Dictation Date: Copy for: [address] [place] [address] REC Page 1 of 1 Name Value Range Interpretation Code Description Data La rce(s) Supporting Document(s) ID Date Data Source [id number] 12/31/2019 12:05:00 PM EDT [facility] ([facility]) Name Value Range Interpretation Code Description Data La rce(s) Supporting Document(s) Testosterone Total For T&D 54.0 ng/dL 8-48 Above high normal [facility] ([facility]) Testosterone Free (Direct) 2.5 pg/mL 0.0-4.2 Barbara l (applies to non-numeric results) [facility] ([facility]) ID Date Data Source [id number] 12/31/2019 12:05:00 PM EDT [facility] ([facility]) Name Value Range Interpretation Code Description Data La rce(s) Supporting Document(s) Glucose [Moles/volume] in Serum or Plasma 82 mg/dL Normal (applies to non- numeric results) [facility]) ID Date Data Source [id number] 12/31/2019 12:05:00 PM EDT [facility] ([facility]) Name Value Range Interpretation Code Description Data La rce(s) Supporting Document(s) Insulin Total2 4.0 uU/mL Normal (applies to non-numeric r esults) [facility] ([facility]) Non-Diabetic: In the absence of insulin -binding antibodies, the free and total insulin assays are equivalent. However, this assay is intended for use in diabetics with insulin autoantibody present. Measurement is performed on acid-treated samples and, therefore, the sensitivity and absolute values by this method may differ from our direct insulin ICMA. Insulin Dependent Diabetic Patients: Free Insulin levels vary depending on the capacity and affinity of circulating insulin-binding antibodies and the dose of insulin given to the patient. Total insulin levels represent free insulin and antibody bound insulin fractions. This test was developed and its performance characteristics determined by [facility]. It has not been cleared or approved by the Food and Drug Administration. Insulin Free 3.9 uU/mL Normal (applies to non-numeric res ults) [facility] ([facility]) Reference Range: Pubertal Children and Adults (fasting): 0 - 17 ID Date Data Source [id number] 12/31/2019 12:05:00 PM EDT [facility] ([facility]) Name Value Range Interpretation Code Description Data La rce(s) Supporting Document(s) Prolactin [Mass/volume] in Serum or Plasma 9.9 ng/mL Normal (applies to non- numeric results) [facility] ([facility]) Non-: 2.8 - 29.2 ng/mL : 9.7 - 208.5 ng/mL Post Menopausal: 1.8 - 20.3 ng/mL Thyrotropin [Units/volume] in Serum or Plasma 1.210 uIU/ML 0. 358-3.740 Normal (applies to non-numeric results) [facility] ([facility]) Lutropin [Units/volume] in Serum or Plasma 78.0 mIU/mL Normal (applies to non- numeric results) [facility] ([facility]) <content>NORMAL MENSTRUATING FEMALES:</c ontent>
<content>FOLLICULAR PHASE 1.9-12.5 mIU/mL</content>
<content>MID CYCLE PEAK 8.7-76.3 mIU/mL</content>
<content>LUTEAL PHASE 0.5-16.9 mIU/mL</content>
<content></content>
<content> <1.5 mIU/mL</content>
<content>POST MENOPAUSAL FEMALES: 15.9-54.0 mIU/mL</content>
<content>CONTRACEPTIVES 0.7-5.6 mIU/mL</content>
<content></content> Follitropin [Units/volume] in Serum or Plasma 24.5 mIU/mL Normal (applies to non-numeric results) [facility] ([facility]) <content>NORMAL MENSTRUATING FEMALES:</c ontent>
<content>FOLLICULAR PHASE 2.5-10.2 mIU/mL</content>
<content>MID CYCLE PEAK 3.4-33.4 mIU/mL</content>
<content>LUTEAL PHASE 1.5-9.1 mIU/mL</content>
<content></content>
<content>: <0.3 mIU/mL</content>
<content>POST MENOPAUSAL FEMALES: 23.0-116.3 mIU/mL</content>
<content></content> Choriogonadotropin.beta subunit ( test) [Pres ence] in Serum or Plasma Laboratory test result Normal (applies to non-numeric results) [facility] ([facility]) Dehydroepiandrosterone sulfate (DHEA-S) [Mass/volume] in Serum or Plasma 276.0 ug/dL 110.0-431.7 Normal (applies to non-numeric results) [facility] ([facility]) Specimen Comment: Test(s) 813973-04-SA P rogesterone LCMS Specimen Comment: was developed and its performance characteristics Specimen Comment: determined by [facility]. It has not been cleared or approved Specimen Comment: by the Food and Drug Administration. 17-Hydroxyprogesterone [Mass/volume] in Serum or Plasma 125 ng/d L Normal (applies to non-numeric results) [facility] ([facility]) Adult Female Follicular 15 - 70 Luteal 35 - 290 Performed at: [facility] [address] [place] [id number] Pressure Testing Technician: Joe Rodriguez MD, Phone: [phone] Performed at: [facility] [address] [id number] Pressure Testing Technician: Larissa Miller MD, Phone: [phone] Performed at: [facility] [address] [id number] Pressure Testing Technician: Edil Hernandez MD, Phone: [phone] ID Date Data Source [id number] 12/18/2019 04:32:00 PM EDT [facility] ([facility]) Name Value Range Interpretation Code Description Data La rce(s) Supporting Document(s) Source: Laboratory test result [facility] ([facility]) {SOURCE: Random Void Chlamydia by Talya Laboratory test result [facility]) {SOURCE: Random Void Gonococcus by Talya Laboratory test result [facility] ([facility]) {SOURCE: Random Void Trich vag by Talya Laboratory test result [facility] ([facility]) {SOURCE: Random Void ID Date Data Source [id number] 12/18/2019 04:32:00 PM EDT [facility] ([facility]) Name Value Range Interpretation Code Description Data La rce(s) Supporting Document(s) Chlamydia sp DNA [Presence] in Urine by Probe and targ et amplification method Laboratory test result [facility] ([facility]) ID Date Data Source [id number] 12/18/2019 04:32:00 PM EDT [facility] ([facility]) Name Value Range Interpretation Code Description Data La rce(s) Supporting Document(s) US Pelvic Laboratory test result [facility] ([facility]) ID Date Data Source [id number] 12/21/2019 09:12:00 AM EDT [facility] Name Value Range Interpretation Code Description Data La rce(s) Supporting Document(s) SOURCE: Random Void [facility] Chlamydia trachomatis rRNA [Presence] in Unspecified specimen by Probe and target amplification method Negative Negative [facility] Neisseria gonorrhoeae rRNA [Presence] in Unspecified specimen by Probe and target amplification method Negative Negative [facility] Trichomonas vaginalis DNA [Presence] in Unspecified specimen by Probe and target amplification method Negative Negative [facility] Procedure Social History Code Duration Value Status Description Data Source(s ) Smoking 01/19/2021 12:00:00 AM EDT Former Smoker completed Former Smoker eCW1 ([facility]) Smoking 01/16/2021 12:00:00 AM EDT Former Smoker completed Former Smoker eCW1 ([facility]) Smoking 01/14/2021 12:00:00 AM EDT Former Smoker completed Former Smoker eCW1 ([facility]) Smoking 01/01/2021 12:00:00 AM EDT Former Smoker completed Former Smoker eCW1 ([facility]) Smoking 01/01/2021 12:00:00 AM EDT Former Smoker completed Former Smoker eCW1 ([facility]) Smoking 12/25/2020 12:00:00 AM EDT Former Smoker completed Former Smoker eCW1 ([facility]) Smoking 11/11/2020 12:00:00 AM EDT Former Smoker completed Former Smoker eCW1 ([facility]) Smoking 10/14/2020 12:00:00 AM EDT Former Smoker completed Former Smoker eCW1 ([facility]) Smoking 10/14/2020 12:00:00 AM EDT Former Smoker completed Former Smoker eCW1 ([facility]) Smoking 09/16/2020 12:00:00 AM EDT Former Smoker completed Former Smoker eCW1 ([facility]) Smoking 08/05/2020 12:00:00 AM EDT Former Smoker completed Former Smoker eCW1 ([facility]) Smoking 08/05/2020 12:00:00 AM EDT Former Smoker completed Former Smoker eCW1 ([facility]) Smoking 08/05/2020 12:00:00 AM EDT Former Smoker completed Former Smoker eCW1 ([facility]) Smoking 07/08/2020 12:00:00 AM EDT Former Smoker completed Former Smoker eCW1 ([facility]) Vital Signs ID Date Data Source UNK Name Value Range Interpretation Code Description Data Source(s) Body weight 172.6 [lb_av] 172.6 [lb_av] eCW1 ([facility]) Body weight 78.29 kg 78.29 kg W1 ([facility]) Body height 65 [in_i] 65 [in_i] eCW1 ([facility]) Body mass index (BMI) [Ratio] 28.722 kg/m2 28.7 22 kg/m2 W1 ([facility]) Systolic blood pressure 116 mm[Hg] 116 mm[Hg] e CW1 ([facility]) Diastolic blood pressure 70 mm[Hg] 70 mm[Hg] eCW1 ([facility]) Body weight 170.2 [lb_av] 170.2 [lb_av] eCW1 ([facility]) Body weight 77.2 kg 77.2 kg eCW1 ([facility]) Body height 65 [in_i] 65 [in_i] eCW1 ([facility]) Body mass index (BMI) [Ratio] 28.323 kg/m2 28.3 23 kg/m2 W1 ([facility]) Systolic blood pressure 112 mm[Hg] 112 mm[Hg] e CW1 ([facility]) Diastolic blood pressure 70 mm[Hg] 70 mm[Hg] eCW1 ([facility]) Body weight 167 [lb_av] 167 [lb_av] eCW1 ([facility]) Body weight 75.75 kg 75.75 kg eCW1 ([facility]) Body height 65 [in_i] 65 [in_i] eCW1 ([facility]) Body mass index (BMI) [Ratio] 27.79 kg/m2 27.79 kg/m2 eCW1 ([facility]) Systolic blood pressure 110 mm[Hg] 110 mm[Hg] e CW1 ([facility]) Diastolic blood pressure 60 mm[Hg] 60 mm[Hg] eCW1 ([facility]) Diastolic blood pressure 60 mm[Hg] 60 mm[Hg] eCW1 ([facility]) Body weight 160.4 [lb_av] 160.4 [lb_av] eCW1 ([facility]) Body height 65 [in_i] 65 [in_i] eCW1 ([facility]) Body mass index (BMI) [Ratio] 26.69 kg/m2 26.69 kg/m2 eCW1 ([facility]) Systolic blood pressure 104 mm[Hg] 104 mm[Hg] e CW1 ([facility]) Body weight 160.8 [lb_av] 160.8 [lb_av] eCW1 ([facility]) Body weight 72.94 kg 72.94 kg eCW1 ([facility]) Body height 65 [in_i] 65 [in_i] eCW1 ([facility]) Body mass index (BMI) [Ratio] 26.759 kg/m2 26.7 59 kg/m2 eCW1 ([facility]) Systolic blood pressure 118 mm[Hg] 118 mm[Hg] e CW1 ([facility]) Diastolic blood pressure 72 mm[Hg] 72 mm[Hg] eCW1 ([facility]) Body weight 152.2 [lb_av] 152.2 [lb_av] eCW1 ([facility]) Body height 65 [in_i] 65 [in_i] eCW1 ([facility]) Body mass index (BMI) [Ratio] 25.327 kg/m2 25.3 27 kg/m2 eCW1 ([facility]) Systolic blood pressure 120 mm[Hg] 120 mm[Hg] e CW1 ([facility]) Diastolic blood pressure 65 mm[Hg] 65 mm[Hg] eCW1 ([facility]) Body weight 141 [lb_av] 141 [lb_av] eCW1 ([facility]) Body height 65 [in_i] 65 [in_i] eCW1 ([facility]) Body mass index (BMI) [Ratio] 23.46 kg/m2 23.46 kg/m2 eCW1 ([facility]) Systolic blood pressure 120 mm[Hg] 120 mm[Hg] e CW1 ([facility]) Diastolic blood pressure 68 mm[Hg] 68 mm[Hg] eCW1 ([facility]) Body weight 135 [lb_av] 135 [lb_av] eCW1 ([facility]) Diastolic blood pressure 62 mm[Hg] 62 mm[Hg] eCW1 ([facility]) Systolic blood pressure 124 mm[Hg] 124 mm[Hg] e CW1 ([facility]) Body mass index (BMI) [Ratio] 22.465 kg/m2 22.4 65 kg/m2 eCW1 ([facility]) Body height 65 [in_i] 65 [in_i] eCW1 ([facility]) Systolic blood pressure 108 mm[Hg] 108 mm[Hg] M [facility] ([facility]) Diastolic blood pressure 66 mm[Hg] 66 mm[Hg] [facility] ([facility]) Heart rate 81 /min 81 /min [facility] ([facility]) Body temperature 98.6 [degF] 98.6 [degF] [facility] ([facility]) Body weight 132.00 [lb_av] 132.00 [lb_av] [facility] T ([facility]) Body weight 59.875 kg 59.875 kg [facility] ([facility]) Body height 65 [in_i] 65 [in_i] [facility] ([facility]) 5'5" Body mass index (BMI) [Ratio] 22.0 kg/m2 22.0 k g/m2 [facility] ([facility]) Body surface area Derived from formula 1.66 m2 1.66 m2 [facility] ([facility]) Diastolic blood pressure 60 mm[Hg] 60 mm[Hg] [facility] ([facility]) Heart rate 60 /min 60 /min [facility] ([facility]) Body weight 135.00 [lb_av] 135.00 [lb_av] [facility] T ([facility]) Body weight 61.236 kg 61.236 kg [facility] ([facility]) Body height 65 [in_i] 65 [in_i] [facility] ([facility]) 5'5" Body mass index (BMI) [Ratio] 22.5 kg/m2 22.5 k g/m2 [facility] ([facility]) Body surface area Derived from formula 1.67 m2 1.67 m2 [facility] ([facility]) Systolic blood pressure 90 mm[Hg] 90 mm[Hg] M [facility] ([facility]) Body temperature 97.1 [degF] 97.1 [degF] [facility] ([facility]) Respiratory rate 16 /min 16 /min [facility] ( [facility]) Body weight 140.00 [lb_av] 140.00 [lb_av] [facility] T ([facility]) Body weight 63.504 kg 63.504 kg [facility] ([facility]) Body surface area Derived from formula 1.70 m2 1.70 m2 [facility] ([facility]) Systolic blood pressure 118 mm[Hg] 118 mm[Hg] M [facility] ([facility]) Diastolic blood pressure 78 mm[Hg] 78 mm[Hg] [facility] ([facility]) Body height 65 [in_i] 65 [in_i] [facility] ([facility]) 5'5" Body mass index (BMI) [Ratio] 23.3 kg/m2 23.3 k g/m2 [facility] ([facility]) Heart rate 78 /min 78 /min [facility] ([facility]) Systolic blood pressure 130 mm[Hg] 130 mm[Hg] M [facility] ([facility]) Diastolic blood pressure 77 mm[Hg] 77 mm[Hg] [facility] ([facility]) Body temperature 96.4 [degF] 96.4 [degF] [facility] ([facility]) Body weight 135.00 [lb_av] 135.00 [lb_av] [facility] T ([facility]) Body weight 61.236 kg 61.236 kg [facility] ([facility]) Body height 65 [in_i] 65 [in_i] [facility] ([facility]) 5'5" Body mass index (BMI) [Ratio] 22.5 kg/m2 22.5 k g/m2 [facility] ([facility]) Body surface area Derived from formula 1.67 m2 1.67 m2 [facility] ([facility]) Body surface area Derived from formula 1.68 m2 1.68 m2 [facility] Systolic blood pressure 118 mm[Hg] 118 mm[Hg] M [facility] ([facility]) Diastolic blood pressure 70 mm[Hg] 70 mm[Hg] [facility] ([facility]) Heart rate 85 /min 85 /min [facility] ([facility]) Body temperature 98.2 [degF] 98.2 [degF] [facility] ([facility]) Body weight 136.00 [lb_av] 136.00 [lb_av] [facility] T ([facility]) Body weight 61.690 kg 61.690 kg [facility] ([facility]) Body height 65 [in_i] 65 [in_i] [facility] ([facility]) 5'5" Body mass index (BMI) [Ratio] 22.6 kg/m2 22.6 k g/m2 [facility] Patient Treatment Plan of Care Planned Activity Planned Date Details Description Data Source (s) ferrous sulfate 325 MG Oral Tablet 11/12/2020 12:00:00 AM EDT eCW1 ([facility])
[2021-01-26] MEDS ORDERED: LACTATED RINGER'S 1000 ML IV STA (02:11)
[2021-01-26] MEDS: LR 1,000 ML IV SCH ×4 (02:15→16:15)
[2021-01-26] MEDS ORDERED: BUTORPHANOL 2 MG/ML INJ (J0595) IV ONE (05:20)
[2021-01-26] MEDS ORDERED: PROMETHAZINE INJ 25 MG/ML VIAL (J2550) IV ONE (05:20)
--- NOTE | 2021-01-26 08:06 | HPE ---
HISTORY AND PHYSICAL DATE OF ADMISSION: 01/26/2021 HISTORY OF PRESENT ILLNESS: The patient is a 25-year-old female, 1, para 0, with an EDC of 01/26/2021, EGA 40 weeks who presented to labor and delivery with complaints of contractions every 4-5 minutes. The patient was also complaining of spotting when wiping, no rupture of membranes. Upon evaluation on labor and delivery, she was found to have mild bleeding on her pad. Her cervix was 1-2 cm dilated and fetus in the vertex position. At this point, a decision was made to admit the patient for early labor. Her record reviewed which was essentially unremarkable. The patient has a niece with congenital heart defect, tetralogy of Fallot. The patient does have a history herself of PCOS and anemia. Her rubella is immune, hepatitis negative, HIV negative, GC, Chlamydia negative. One hour sugar testing was within normal limits. Her GBS is negative. PAST MEDICAL HISTORY: Significant for PCOS. PAST SURGICAL HISTORY: She had an ovarian cystectomy in 2012. SOCIAL HISTORY: She is a former smoker, reports not having smoked in the last five years. She denies any alcohol or drug use. REVIEW OF SYSTEMS: Unremarkable. MEDICATIONS: vitamins. ALLERGIES: No known drug allergies. PHYSICAL EXAMINATION: Normal appearing female in no acute distress. Abdomen is soft, nontender, nondistended. Extremities: No clubbing, cyanosis or edema. Vaginal exam: 1-2 cm dilated, 60% effaced. Fetus at minus 2 station in vertex position. Tracing reviewed, category 1 tracing. ASSESSMENT: Intrauterine at 40 weeks gestation in early labor. PLAN: Admit to labor and delivery, routine labs sent. Pain management discussed. Patient is considering an epidural. We will continue to monitor, anticipate delivery. [facility]
--- NOTE | 2021-01-26 10:19 | IPNPDOC ---
Obstetrical Progress Note Date of Service Jan 26, 2021 Subjective Becoming uncomfortable with contractions. Objective Vital Signs Date Time Temp Pulse Resp B/P (MAP) Pulse Ox O2 Delivery O2 Flow Rate FiO2 01/26/21 05:51 18 20 01/26/21 00:00 98.6 83 137/82 (100) Assessment Heart Rate (FHR): 140 Variability: Moderate Accelerations: Positive Decelerations: None Heart Rate Tracing: Category I Tocometer Contractions: Yes Frequency: every 2-5 min. Strength: palpated as moderate Sterile Vaginal Examination Dilation: 4 cm Effacement (%): 80% Station: -1 Cervical Consistency: Soft Cervical Position: Middle Postion/Presentation: Cephalic presentation Assessment and Plan Age: 25 : 1 Term: 0 Pre-term: 0 Abortions: 0 Livin Weeks & Days 40.0 Status: Reassuring Group B Streptococcus: Negative Anticipate: Vaginal Delivery Additional Comments Pt requesting epidural. Anesthesia notified. HANNAH MODI CNM Jan 26, 2021 10:19
[2021-01-26] MEDS ORDERED: LACTATED RINGER'S 1000 ML IV PRN (10:23)
[2021-01-26] MEDS ORDERED: FENTANYL/ROPIVACAINE/NACL BAG 100 ML EPIDURAL SCH (10:23)
[2021-01-26] MEDS ORDERED: REFRIGERATOR IV KEYS XX PRN (10:23)
[2021-01-26] MEDS ORDERED: ONDANSETRON 4MG/2ML VIAL IV PRN (10:23)
[2021-01-26] MEDS ORDERED: EPIDURAL/PCA KEYS XX PRN (10:23)
[2021-01-26] MEDS ORDERED: EPIDURAL COMMENT XX SCH (10:23)
[2021-01-26] MEDS ORDERED: NALOXONE INJ 0.4MG/1ML VIAL (J2310 PER 1MG) IV PRN (10:23)
[2021-01-26] MEDS ORDERED: ePHEDrine SULFATE 25 MG/5 ML(5MG/ML) SYRINGE IV PRN (10:23)
[2021-01-26] MEDS ORDERED: diphenhydrAMINE 50MG/ML VIAL (J1200) IV PRN (10:23)
[2021-01-26] MEDS ORDERED: FENTANYL 2MCG/ML ROPIVACAINE 0.2% IN 0.9% NACL 100ML IVBAG As Ordered ONE (10:24)
[2021-01-26] MEDS ORDERED: OXYTOCIN DRIP 30 UNITS in IV 1 EA IV SCH (12:10)
--- NOTE | 2021-01-26 16:27 | IPNPDOC ---
Obstetrical Progress Note Date of Service Jan 26, 2021 Subjective Patient reports vaginal pressure. Objective Vital Signs Date Time Temp Pulse Resp B/P (MAP) Pulse Ox O2 Delivery O2 Flow Rate FiO2 01/26/21 12:56 76 16 101/59 (73) 01/26/21 10:47 98.0 01/26/21 05:51 20 Assessment Heart Rate (FHR): 150 Variability: Minimal to moderate Decelerations: Late, Variable Heart Rate Tracing: Category II Tocometer Contractions: Yes Sterile Vaginal Examination Dilation: 9 cm Effacement (%): 100% Station: 0 Postion/Presentation: Cephalic presentation Assessment and Plan Age: 25 Anticipate: Vaginal Delivery Additional Comments Dr. Enriquez notified of strip and present in hospital to evaluate. AROM to a moderate amount of meconium. Reviewed with patient that a section may be necessary if fetus doesn't tolerate pushing. Verbalized understanding. HANNAH MODI CNM Jan 26, 2021 16:27
[2021-01-26] MEDS ORDERED: METHYLERGONOVINE MALEATE 0.2 MG TAB PO PRN (18:50)
[2021-01-26] MEDS ORDERED: IBUPROFEN 600MG TAB PO PRN (18:50)
[2021-01-26] MEDS ORDERED: DOCUSATE SODIUM 100MG CAPSULE PO PRN (18:50)
[2021-01-26] MEDS ORDERED: MEASLES,MUMPS,RUBELLA VACCINE INJ (MMR-II) (90707) SC SCH (18:50)
[2021-01-26] MEDS ORDERED: RHOGAM 300 MCG (1500 IU) INJ (J2790) IM SCH (18:50)
[2021-01-26] MEDS ORDERED: ACETAMINOPHEN TAB 650MG DOSE (2X325MG) PO PRN (18:50)
[2021-01-26] MEDS ORDERED: ANUSOL HC CREAM 30GM TOP PRN (18:50)
[2021-01-26] MEDS ORDERED: MOM 30ML SUSPENSION UDC PO PRN (18:50)
[2021-01-26] MEDS ORDERED: DIBUCAINE 1% OINTMENT 30GM TOP PRN (18:50)
--- NOTE | 2021-01-26 18:53 | DNPDOC ---
[facility] Delivery Note Delivery Note DATE OF DELIVERY: 01/26/2021 PREDELIVERY DIAGNOSIS: 40-0/7 weeks' gestation and labor. POST DELIVERY DIAGNOSIS: Delivered at 1736 PROCEDURE: Spontaneous vaginal delivery. [employer]: Hannah Sun CNM and ALONZO Magaña ANESTHESIA: epidural. ESTIMATED BLOOD LOSS: 350 mL. FINDINGS: 7 pounds 2 ounces; 3240 grams; male , Score 7/9, right compound hand. DELIVERY SUMMARY: Tona is a 25-year-old 1 now para 1001 who was admitted to labor and delivery in active labor. She received an epidural for pain management. Her labor was augmented with IV Pitocin. She had AROM at 1612 with a moderate amount of meconium. She was fully at 1635. The patient pushed to a living male in the ADDY position with restitution to ROT, right compound hand noted. The anterior shoulder was delivered with gentle downward traction and the corpus followed. The was placed active and crying with stimulation on the maternal abdomen. The three vessel cord was clamped and cut by the father of the baby after two minutes. The placenta was delivered via Ponce at 1747. Hemostasis was achieved with IV Pitocin and fundal massage. The cervix, vagina, and perineum was inspected and a right sulcus laceration and right labial laceration was noted. Repair with 3.0 vicryl was used for the repair with the use of a vaginal retractor for visualization. Mom and baby are in stable condition. Mom plans to breastfeed and has named her son Avery. The counts of surgical instruments and sponges are correct. HANNAH SUN CNM Jan 26, 2021 18:53
[2021-01-26] MEDS: IBUPROFEN 800 MG TAB PO PRN (19:28)
[2021-01-26] MEDS: ACETAMINOPHEN 500 MG TAB PO PRN (20:14)
[2021-01-27] MEDS: IBUPROFEN 800 MG TAB PO PRN ×3 (02:55→19:57)
[2021-01-27] MEDS: ACETAMINOPHEN 500 MG TAB PO PRN ×4 (03:34→22:33)
[2021-01-27 06:00] VITALS: BP 102/58
[2021-01-27] MEDS: PRENATAL VITAMINS CHEWABLE TABLET PO SCH (07:35)
--- NOTE | 2021-01-27 15:40 | IPNPDOC ---
Text Note Date of Service The patient was seen on 01/27/21. NOTE post note S: no complaints O: AVSS NAD ABd:NT, FF ext: NT A/P 25 yo s/p PPD#1 routine PP care VS,Fishbone, I+O VS, Fishbone, I+O Vital Signs Date Time Temp Pulse Resp B/P (MAP) Pulse Ox O2 Delivery O2 Flow Rate FiO2 01/27/21 06:00 97.4 81 16 102/58 (73) 98 Room Air I&O- Last 24 Hours up to 6 AM 01/27/21 06:00 Intake Total 5872.8 ml Output Total 4575 ml Balance 1297.8 ml KG STOCKTON MD Jan 27, 2021 15:40
[2021-01-27 17:54] VITALS: BP 99/64
[2021-01-28] MEDS: IBUPROFEN 800 MG TAB PO PRN (04:33)
[2021-01-28 06:00] VITALS: BP 103/58
[2021-01-28] MEDS: PRENATAL VITAMINS CHEWABLE TABLET PO SCH (07:21)
[2021-01-28] MEDS: ACETAMINOPHEN 500 MG TAB PO PRN (07:22)
== END 2021-01-28 12:10 | disposition home or self-care (01) | DRG 560 ==
LOC: M LDO 23:50 → M LDI 01-26 02:01 → M OBS 01-26 20:39
PROVIDERS: ADMIT Obstetrics & Gynecology; ATTEND Advanced Practice Midwife
PROC: 10E0XZZ Delivery of Products of Conception, External Approach (ICD-10-PCS; principal; 2021-01-26)
PROC: 0HQ9XZZ Repair Perineum Skin, External Approach (ICD-10-PCS; 2021-01-26)
PROC: 10907ZC Drainage of Amniotic Fluid, Therapeutic from Products of Conception, Via Natural or Artificial Opening (ICD-10-PCS; 2021-01-26)
DX: O70.0 First degree perineal laceration during delivery (principal); Z3A.40 40 weeks gestation of pregnancy; O32.6XX0 Maternal care for compound presentation, not applicable or unspecified; Z37.0 Single live birth

== ENCOUNTER → 2021-03-12 | Outpatient (CLI) | payer BC, OTHER ==
[~2021-03-12] MED LIST changes: +METF-839 PO; +PRENTAB9 PO
[2021-03-12 13:15] LABS: HEMOGLOBIN A1c 5.3 %
== END ==
LOC: M WUC 10:25
PROVIDERS: ATTEND Advanced Practice Midwife
DX: Z86.32 Personal history of gestational diabetes (principal)

== ENCOUNTER → 2021-12-14 | Outpatient (CLI) | payer OTHER | LOC: M WHC 09:08 | PROVIDERS: ATTEND Obstetrics & Gynecology | DX: O30.031 Twin pregnancy, monochorionic/diamniotic, first trimester (principal) ==

== ENCOUNTER → 2021-12-31 | Outpatient (CLI) | payer BC, OTHER | LOC: M RAD 12:01 | PROVIDERS: ATTEND Obstetrics & Gynecology | DX: O30.031 Twin pregnancy, monochorionic/diamniotic, first trimester (principal) ==

== ENCOUNTER → 2022-01-18 | Outpatient (CLI) | payer BC, OTHER | LOC: M WHC 13:24 | PROVIDERS: ATTEND Obstetrics & Gynecology | DX: O30.032 Twin pregnancy, monochorionic/diamniotic, second trimester (principal); Z3A.16 16 weeks gestation of pregnancy ==

== ENCOUNTER → 2022-01-28 | Outpatient (CLI) | payer BC, OTHER ==
[2022-01-28 17:49] LABS: ALBUMIN 3.1 GM/DL (3.2-5.2); BILIRUBIN,DIRECT 0.1 MG/DL (0.0-0.2); BILIRUBIN,TOTAL 0.2 MG/DL (0.2-1.0); TOTAL PROTEIN 6.6 GM/DL (6.4-8.2)
== END ==
LOC: M WUC 13:08
PROVIDERS: ATTEND Specialist
DX: L29.9 Pruritus, unspecified (principal)

== ENCOUNTER → 2022-02-04 | Outpatient (CLI) | payer BC, OTHER | LOC: M WHC 13:13 | PROVIDERS: ATTEND Specialist | DX: O30.032 Twin pregnancy, monochorionic/diamniotic, second trimester (principal); Z3A.19 19 weeks gestation of pregnancy ==

== ENCOUNTER → 2022-03-04 | Outpatient (CLI) | payer BC, OTHER | LOC: M WHC 11:54 | PROVIDERS: ATTEND Specialist | DX: O30.032 Twin pregnancy, monochorionic/diamniotic, second trimester (principal); Z3A.23 23 weeks gestation of pregnancy ==

== ENCOUNTER → 2022-03-16 | Outpatient (CLI) | payer BC, OTHER ==
[2022-03-16 16:18] LABS: HEMATOCRIT 32.8 % (36.0-47.0); HEMOGLOBIN 10.9 g/dl (12.0-15.5); MEAN CORPUSCULAR HEMOGLOBIN 32.1 pg (27.0-33.0); MEAN CORPUSCULAR HGB CONC 33.2 g/dl (32.0-36.5); MEAN CORPUSCULAR VOLUME 96.5 fl (80.0-96.0); PLATELET COUNT, AUTOMATED 219 10^3/uL (150-450)
[2022-03-16 19:58] LABS: GC DNA AMPLIFICATION NEGATIVE (NEGATIVE)
== END ==
LOC: M PLALAB 11:41
PROVIDERS: ATTEND Specialist
DX: O30.032 Twin pregnancy, monochorionic/diamniotic, second trimester (principal)

== ENCOUNTER 2022-03-29 19:37 | Outpatient (CLI) | payer BC, OTHER ==
[~2022-03-29] VITALS: Ht 165.1 cm; Wt 80.8 kg
[2022-03-29 20:05] LABS: APPEARANCE, URINE MANUAL CLEAR (CLEAR); COLOR, URINE MANUAL COLORLESS (YELLOW)
[2022-03-29 20:07] LABS: BILIRUBIN, URINE MANUAL NEGATIVE (NEGATIVE); BLOOD URINE MANUAL NEGATIVE (NEGATIVE); GLUCOSE, URINE (UA) MANUAL NEGATIVE (NEGATIVE); KETONE, URINE MANUAL NEGATIVE (NEGATIVE); LEUKOCYTE ESTERASE, URINE MAN NEGATIVE (NEGATIVE); NITRITE, URINE MANUAL NEGATIVE (NEGATIVE); PROTEIN, URINE MANUAL NEGATIVE (NEGATIVE); UROBILINOGEN, URINE MANUAL NORMAL (NORMAL)
[2022-03-29 20:31] VITALS: BP 112/57
[2022-03-29] MEDS ORDERED: PRENTAB9 PO (20:32)
[2022-03-29] MEDS ORDERED: HOME MED LIST COMPLETE! XX SCH (20:35)
== END 2022-03-29 22:00 | disposition home or self-care (01) ==
LOC: M LDO 19:37
PROVIDERS: ATTEND Advanced Practice Midwife
DX: O60.02 Preterm labor without delivery, second trimester (principal); O30.032 Twin pregnancy, monochorionic/diamniotic, second trimester; Z3A.26 26 weeks gestation of pregnancy
CPT/HCPCS: 59025; 76815; 76817; 76819; 76820; 81002; G0463

== ENCOUNTER → 2022-03-31 | Outpatient (CLI) | payer BC, OTHER | LOC: M LAB 08:00 | PROVIDERS: ATTEND Specialist | DX: O30.032 Twin pregnancy, monochorionic/diamniotic, second trimester (principal) ==

== ENCOUNTER → 2022-04-08 | Outpatient (CLI) | payer BC, OTHER | LOC: M WHC 10:30 | PROVIDERS: ATTEND Advanced Practice Midwife | DX: O30.032 Twin pregnancy, monochorionic/diamniotic, second trimester (principal) ==

== ENCOUNTER → 2022-04-19 | Outpatient (CLI) | payer BC, OTHER | LOC: M WHC 11:31 | PROVIDERS: ATTEND Obstetrics & Gynecology | DX: O30.033 Twin pregnancy, monochorionic/diamniotic, third trimester (principal); Z36.2 Encounter for other antenatal screening follow-up; Z3A.30 30 weeks gestation of pregnancy ==

== ENCOUNTER 2022-05-20 20:26 | Outpatient (CLI) | payer BC, OTHER ==
[~2022-05-20] VITALS: Ht 165.1 cm; Wt 89.4 kg
[~2022-05-20 20:26] MED LIST changes: -ACET325C5 PO; -FOLI400T13 PO; -IRON27TA2 PO
[2022-05-20 20:48] VITALS: BP 119/66
[2022-05-20] MEDS ORDERED: ACET325C5 PO (20:55)
[2022-05-20] MEDS ORDERED: IRON27TA2 PO (20:55)
[2022-05-20] MEDS ORDERED: FOLI400T13 PO (20:55)
[2022-05-20] MEDS ORDERED: METOCLOPRAMIDE 10MG TAB PO ONE (21:10)
[2022-05-20] MEDS ORDERED: diphenhydrAMINE 25MG CAP PO ONE (21:10)
[2022-05-20 21:59] VITALS: BP 120/66
== END 2022-05-20 22:38 | disposition home or self-care (01) ==
LOC: M LDO 20:26
PROVIDERS: ATTEND Obstetrics & Gynecology
DX: O26.893 Other specified pregnancy related conditions, third trimester (principal); R51.9 Headache, unspecified; Z3A.34 34 weeks gestation of pregnancy
CPT/HCPCS: 59025; G0463

== ENCOUNTER → 2022-05-20 | Outpatient (CLI) | payer BC, OTHER ==
[~2022-05-20] MED LIST changes: +ACET325C5 PO; +FOLI400T13 PO; +IRON27TA2 PO
== END ==
LOC: M WHC 14:25
PROVIDERS: ATTEND Obstetrics & Gynecology
DX: O30.033 Twin pregnancy, monochorionic/diamniotic, third trimester (principal)

== ENCOUNTER → 2022-05-21 | Outpatient (CLI) | payer BC, OTHER ==
[~2022-05-21] MED LIST changes: +ACET325C5 PO; +FOLI400T13 PO; +IRON27TA2 PO
[2022-05-21 17:15] LABS: HEMATOCRIT 34.2 % (36.0-47.0); HEMOGLOBIN 11.2 g/dl (12.0-15.5); MEAN CORPUSCULAR HEMOGLOBIN 31.5 pg (27.0-33.0); MEAN CORPUSCULAR HGB CONC 32.7 g/dl (32.0-36.5); MEAN CORPUSCULAR VOLUME 96.1 fl (80.0-96.0); PLATELET COUNT, AUTOMATED 193 10^3/uL (150-450); RED BLOOD COUNT 3.56 10^6/uL (4.00-5.40); WHITE BLOOD COUNT 11.2 10^3/uL (4.0-10.0)
== END ==
LOC: M PLALAB 14:33
PROVIDERS: ATTEND Advanced Practice Midwife
DX: O30.049 Twin pregnancy, dichorionic/diamniotic, unspecified trimester (principal); Z3A.00 Weeks of gestation of pregnancy not specified

== ENCOUNTER → 2022-05-26 | Outpatient (REF) | payer OTHER, BC ==
[~2022-05-26] MED LIST changes: +METR-265 PO
== END ==
LOC: M SFHCWAGY 15:15
PROVIDERS: ATTEND Advanced Practice Midwife
DX: Z36.85 Encounter for antenatal screening for Streptococcus B (principal)

== ENCOUNTER 2022-05-27 10:59 | Outpatient (CLI) | payer OTHER, BC ==
[~2022-05-27] VITALS: Ht 165.1 cm; Wt 89.9 kg
[~2022-05-27 10:59] MED LIST changes: -METR-265 PO
[2022-05-27 11:21] VITALS: BP 116/63
[2022-05-27] MEDS ORDERED: HOME MED LIST COMPLETE! XX SCH (11:25)
[2022-05-27] MEDS ORDERED: BETAMETHASONE SOLUSPAN 6MG/ML 5ML VIAL IM SCH (12:00)
[2022-05-28] MEDS ORDERED: METR-265 PO (20:28)
== END 2022-05-27 11:55 | disposition home or self-care (01) ==
LOC: M LDO 10:59
PROVIDERS: ATTEND Obstetrics & Gynecology
DX: O30.033 Twin pregnancy, monochorionic/diamniotic, third trimester (principal); Z3A.35 35 weeks gestation of pregnancy
CPT/HCPCS: 59025; 96372; G0463; J0702

== ENCOUNTER 2022-05-28 11:34 | Outpatient (CLI) | payer OTHER, BC ==
[~2022-05-28] VITALS: Ht 165.1 cm; Wt 88.9 kg
[2022-05-28 11:45] VITALS: BP 112/67
[2022-05-28] MEDS ORDERED: BETAMETHASONE SOLUSPAN 6MG/ML 5ML VIAL IM ONE (11:45)
[2022-05-28] MEDS ORDERED: HOME MED LIST COMPLETE! XX SCH (11:50)
[2022-05-28] MEDS ORDERED: METR-265 PO (20:28)
== END 2022-05-28 11:48 | disposition home or self-care (01) ==
LOC: M LDO 11:34
PROVIDERS: ATTEND Advanced Practice Midwife
DX: O30.033 Twin pregnancy, monochorionic/diamniotic, third trimester (principal); Z3A.35 35 weeks gestation of pregnancy
CPT/HCPCS: 96372; G0463; J0702

== ENCOUNTER 2022-05-28 18:55 | Outpatient (CLI) | payer OTHER, BC ==
[~2022-05-28] VITALS: Ht 165.1 cm; Wt 90.4 kg
[2022-05-28 19:11] VITALS: BP 142/66
[2022-05-28] MEDS ORDERED: metroNIDAZOLE (FLAGYL) 500MG TABLET PO ONE (20:25)
[2022-05-28] MEDS ORDERED: METR-265 PO (20:28)
== END 2022-05-28 20:36 | disposition home or self-care (01) ==
LOC: M LDO 18:55
PROVIDERS: ATTEND Advanced Practice Midwife
DX: O23.593 Infection of other part of genital tract in pregnancy, third trimester (principal); O30.033 Twin pregnancy, monochorionic/diamniotic, third trimester; Z3A.35 35 weeks gestation of pregnancy
CPT/HCPCS: 59025; G0463

== ENCOUNTER 2022-06-03 10:07 | Inpatient (IN) | payer BC, OTHER ==
[~2022-06-03] VITALS: Ht 165.1 cm; Wt 88.1 kg
[2022-06-03] VITALS (7 sets, daily range): BP systolic 110–138; BP diastolic 65–82
[~2022-06-03 10:07] MED LIST changes: +METR-265 PO
[2022-06-03] MEDS ORDERED: HOME MED LIST COMPLETE! XX SCH (11:15)
[2022-06-03 11:32] LABS: HEMOGLOBIN 12.2 g/dl (12.0-15.5); MEAN CORPUSCULAR HEMOGLOBIN 31.5 pg (27.0-33.0); MEAN CORPUSCULAR HGB CONC 33.9 g/dl (32.0-36.5); PLATELET COUNT, AUTOMATED 229 10^3/uL (150-450); RED BLOOD COUNT 3.87 10^6/uL (4.00-5.40); WHITE BLOOD COUNT 8.7 10^3/uL (4.0-10.0)
[2022-06-03] MEDS ORDERED: LACTATED RINGER'S 1000 ML IV STA (11:51)
[2022-06-03] MEDS ORDERED: ceFAZolin SOD 2 GM in IV 1 EA IV ONE (11:55)
[2022-06-03] MEDS ORDERED: CARBOPROST TROMETHAMINE 250 MCG/ML AMP IM PRN (11:55)
[2022-06-03] MEDS ORDERED: BICITRA 30ML SOLN UDC PO ONE (11:55)
[2022-06-03] MEDS ORDERED: TRANEXAMIC ACID INJection 1,000 MG in NS 100 ML IV PRN (11:55)
[2022-06-03] MEDS ORDERED: METHYLERGONOVINE MALEATE 0.2MG/ML 1ML VIAL IM PRN (11:55)
[2022-06-03] MEDS ORDERED: LIDOCAINE 1% MDV 20ML VIAL INFIL PRN (11:55)
[2022-06-03] MEDS ORDERED: OXYTOCIN DRIP 30 UNITS in IV 1 EA IV PRN (11:55)
[2022-06-03] MEDS ORDERED: ACETAMINOPHEN 500 MG TAB PO ONE ×2 (13:15→14:00)
[2022-06-03] MEDS ORDERED: MORPHINE PRES-FREE INJ 10 MG/10 ML VIAL As Ordered ONE (17:04)
[2022-06-03] MEDS ORDERED: ePHEDrine SULFATE 25 MG/5 ML(5MG/ML) SYRINGE As Ordered ONE (17:05)
[2022-06-03] MEDS ORDERED: PHENYLephrine 500MCG 5ML (100MCG/ML) SYRINGE As Ordered ONE (17:05)
[2022-06-03] MEDS ORDERED: OXYTOCIN 30UNITS IN 0.9% NaCl 500ML IV BAG As Ordered ONE ×2 (17:05→18:39)
[2022-06-03] MEDS ORDERED: ONDANSETRON 4MG 2ML VIAL As Ordered ONE (17:43)
[2022-06-03] MEDS ORDERED: KETOROLAC 60MG 2ML VIAL As Ordered ONE (17:43)
[2022-06-03] MEDS ORDERED: MORPHINE 2 MG/ML 1ML VIAL IV PRN (18:30)
[2022-06-03] MEDS ORDERED: ONDANSETRON 4MG 2ML VIAL IV PRN ×2 (18:30→19:00)
[2022-06-03] MEDS ORDERED: LR 1,000 ML IV SCH (18:30)
[2022-06-03] MEDS ORDERED: ANUSOL HC CREAM 30GM TOP PRN (18:30)
[2022-06-03] MEDS ORDERED: SIMETHICONE 80MG CHEW TAB PO PRN (18:30)
[2022-06-03] MEDS ORDERED: PERCOCET 5MG/325MG TAB PO PRN (18:30)
[2022-06-03] MEDS ORDERED: OXYTOCIN DRIP 30 UNITS in IV 1 EA IV SCH (18:30)
[2022-06-03] MEDS ORDERED: RHOGAM 300MCG (1500IU) INJ IM SCH (18:30)
[2022-06-03] MEDS ORDERED: PERCOCET PO (18:48)
[2022-06-03] MEDS ORDERED: COLA100C5 PO (18:48)
[2022-06-03] MEDS ORDERED: IBUP80TA PO (18:48)
[2022-06-03] MEDS ORDERED: **NOTE PATIENT COMMENT** MISC XX SCH (19:00)
[2022-06-03] MEDS ORDERED: METOCLOPRAMIDE INJ 10MG/2ML VIAL IV PRN (19:00)
[2022-06-03] MEDS ORDERED: NALOXONE INJ 0.4MG/1ML VIAL IV PRN ×2 (19:00)
[2022-06-03] MEDS ORDERED: oxyCODONE 5MG TAB PO PRN (19:00)
[2022-06-03] MEDS ORDERED: MEPERIDINE 25 MG/ML 1ML VIAL IV PRN (19:00)
[2022-06-03] MEDS ORDERED: diphenhydrAMINE 50MG/ML VIAL IV PRN (19:00)
[2022-06-03] MEDS: SLF 3 ML SYR IV SCH (19:00)
[2022-06-03] MEDS ORDERED: HYDROMORPHONE HCL 0.5 MG/ 0.5 ML SYRINGE IV PRN (19:00)
[2022-06-03] MEDS ORDERED: fentaNYL 100 MCG/2 ML INJECTION IV PRN (19:00)
[2022-06-03] MEDS: DOCUSATE SODIUM 100MG CAPSULE PO SCH (20:44)
[2022-06-03] MEDS: ACETAMINOPHEN 500 MG TAB PO PRN (22:59)
[2022-06-03] MEDS: KETOROLAC 30 MG/ML 1ML VIAL IV SCH (23:00)
[2022-06-04] MEDS: SLF 3 ML SYR IV SCH ×2 (03:00→11:07)
[2022-06-04] MEDS: KETOROLAC 30 MG/ML 1ML VIAL IV SCH ×2 (05:19→11:07)
[2022-06-04] MEDS: ACETAMINOPHEN 500 MG TAB PO PRN (05:21)
[2022-06-04 05:37] VITALS: BP 108/63
[2022-06-04 07:34] LABS: HEMATOCRIT 32.5 % (36.0-47.0); HEMOGLOBIN 10.7 g/dl (12.0-15.5); MEAN CORPUSCULAR HEMOGLOBIN 30.8 pg (27.0-33.0); MEAN CORPUSCULAR HGB CONC 32.9 g/dl (32.0-36.5); MEAN CORPUSCULAR VOLUME 93.7 fl (80.0-96.0); PLATELET COUNT, AUTOMATED 177 10^3/uL (150-450); RED BLOOD COUNT 3.47 10^6/uL (4.00-5.40); WHITE BLOOD COUNT 10.6 10^3/uL (4.0-10.0)
[2022-06-04] MEDS: DOCUSATE SODIUM 100MG CAPSULE PO SCH ×2 (08:12→21:03)
[2022-06-04] MEDS: PRENATAL VITAMINS CHEWABLE TABLET PO SCH (08:12)
[2022-06-04] MEDS: PERCOCET 5MG/325MG TAB PO PRN ×3 (08:13→22:34)
[2022-06-04 10:00] VITALS: BP 108/60
[2022-06-04 14:00] VITALS: BP 121/65
[2022-06-04 18:02] VITALS: BP 104/59
[2022-06-04] MEDS: IBUPROFEN 800 MG TAB PO SCH (20:02)
[2022-06-04 22:00] VITALS: BP 109/58
[2022-06-05 02:00] VITALS: BP 107/61
[2022-06-05] MEDS: IBUPROFEN 800 MG TAB PO SCH (04:09)
[2022-06-05] MEDS: PERCOCET 5MG/325MG TAB PO PRN ×2 (04:49→10:25)
[2022-06-05 06:00] VITALS: BP 102/58
[2022-06-05] MEDS ORDERED: MEASLES,MUMPS,RUBELLA VACCINE INJ (MMR-II) SC.IMMUN ONE (09:00)
[2022-06-05 10:00] VITALS: BP 107/59
[2022-06-05] MEDS: PRENATAL VITAMINS CHEWABLE TABLET PO SCH (10:24)
[2022-06-05] MEDS: DOCUSATE SODIUM 100MG CAPSULE PO SCH (10:24)
== END 2022-06-05 14:30 | disposition home or self-care (01) | DRG 540 ==
LOC: M LDI 10:07 → M OBS 20:20
PROVIDERS: ADMIT Obstetrics & Gynecology; ATTEND Obstetrics & Gynecology
PROC: 10D00Z1 Extraction of Products of Conception, Low, Open Approach (ICD-10-PCS; principal; 2022-06-03 17:00)
DX: O32.8XX2 Maternal care for other malpresentation of fetus, fetus 2 (principal); Z37.2 Twins, both liveborn; Z3A.36 36 weeks gestation of pregnancy; O30.033 Twin pregnancy, monochorionic/diamniotic, third trimester

== ENCOUNTER → 2023-07-29 | Outpatient (CLI) | payer BC ==
[~2023-07-29] MED LIST changes: +COLA100C5 PO; +E-Z-GAS II EFFERVESCENT PACKET (SODIUM BICARB./CITRIC ACID/SIMETHICONE) As Ordered ONE; +E-Z-HD 98% w/w 340GM SUSP BTL As Ordered ONE; +E-Z-PAQUE 96% w/w SUSP 176GM BTL As Ordered ONE; +IBUP80TA PO; +PERCOCET PO
== END ==
LOC: M RAD 09:23
PROVIDERS: ATTEND Physician Assistant Medical
DX: R13.10 Dysphagia, unspecified (principal)

== ENCOUNTER → 2023-10-25 | Outpatient (CLI) | payer BC, OTHER ==
[~2023-10-25] MED LIST changes: -E-Z-GAS II EFFERVESCENT PACKET (SODIUM BICARB./CITRIC ACID/SIMETHICONE) As Ordered ONE; -E-Z-HD 98% w/w 340GM SUSP BTL As Ordered ONE; -E-Z-PAQUE 96% w/w SUSP 176GM BTL As Ordered ONE
== END ==
LOC: M WUC 10:49
PROVIDERS: ATTEND Nurse Practitioner Family
DX: M25.541 Pain in joints of right hand (principal); M25.542 Pain in joints of left hand

== ENCOUNTER → 2023-12-09 | Outpatient (CLI) | payer BC ==
[~2023-12-09] MED LIST changes: +ALPR0.25
== END ==
LOC: M PLALAB 12:14
PROVIDERS: ATTEND Obstetrics & Gynecology
DX: Z12.4 Encounter for screening for malignant neoplasm of cervix (principal); N93.9 Abnormal uterine and vaginal bleeding, unspecified
CPT/HCPCS: 36415; 84443; G0123

== ENCOUNTER 2023-12-17 10:24 | Emergency (ER) | payer BC ==
[~2023-12-17] VITALS: Ht 165.1 cm; Wt 59.8 kg
[~2023-12-17 10:24] MED LIST changes: -ALPR0.25
[2023-12-17] MEDS ORDERED: ALPR0.25 (10:35)
[2023-12-17 11:30] LABS: BASO % 0.7 % (0.0-1.0); EOS % 0.5 % (0.0-3.0); HEMATOCRIT 34.5 % (36.0-47.0); HEMOGLOBIN 10.6 g/dl (12.0-15.5); LYMPH # 1.2 10^3/uL (1.5-5.0); LYMPH % 20.5 % (24.0-44.0); MEAN CORPUSCULAR HEMOGLOBIN 26.2 pg (27.0-33.0); MEAN CORPUSCULAR HGB CONC 30.7 g/dl (32.0-36.5); MEAN CORPUSCULAR VOLUME 85.2 fl (80.0-96.0); MONO # 0.4 10^3/uL (0.0-0.8); MONO % 6.1 % (2.0-8.0); NEUTROPHILS # 4.2 10^3/uL (1.5-8.5); PLATELET COUNT, AUTOMATED 403 10^3/uL (150-450); RED BLOOD COUNT 4.05 10^6/uL (4.00-5.40); WHITE BLOOD COUNT 5.8 10^3/uL (4.0-10.0)
[2023-12-17] MEDS: ONDANSETRON 4MG 2ML VIAL IV ONE (11:52)
[2023-12-17] MEDS: ACETAMINOPHEN *IV* 1,000 MG in IV 1 EA IV ONE (11:53)
[2023-12-17] MEDS: NS 1,000 ML IV ONE (11:53)
[2023-12-17 12:05] LABS: LIPASE 49 U/L (12-53)
[2023-12-17 12:07] LABS: ALBUMIN 4.7 G/DL (3.2-5.2); ALKALINE PHOSPHATASE 56 U/L (46-116); ALT/SGPT 19 U/L (7.0-40); AST/SGOT 12 U/L (<34); BILIRUBIN,DIRECT 0.2 MG/DL (<0.4); BILIRUBIN,TOTAL 0.5 MG/DL (0.3-1.2); TOTAL PROTEIN 7.8 G/DL (5.7-8.2)
[2023-12-17 12:10] LABS: FREE T4 1.44 NG/DL (0.89-1.76); THYROID STIMULATING HORMONE 1.562 uIU/ML (0.55-4.78)
[2023-12-17 12:11] LABS: HCG, SERUM QUALITATIVE NEGATIVE (NEGATIVE)
[2023-12-17 12:26] VITALS: TEMP 98.2
[2023-12-17] MEDS: KETOROLAC 30 MG/ML 1ML VIAL IV ONE (13:19)
[2023-12-17 14:29] VITALS: BP 130/75; O2SAT 99
== END 2023-12-17 15:10 | disposition left against medical advice (07) ==
LOC: M ED 10:24
DX: R10.9 Unspecified abdominal pain (principal); E28.2 Polycystic ovarian syndrome; F41.9 Anxiety disorder, unspecified; F17.290 Nicotine dependence, other tobacco product, uncomplicated; Z79.1 Long term (current) use of non-steroidal anti-inflammatories (NSAID); Z79.899 Other long term (current) drug therapy; Z53.9 Procedure and treatment not carried out, unspecified reason
CPT/HCPCS: 74176; 76830; 76856; 80047; 80076; 81001; 83690; 84439; 84443; 84703; 85025; 87086; 93976; 96365; 96374; 96375; 99284; J0131; J1885; J2405

== ENCOUNTER → 2024-01-03 | Outpatient (CLI) | payer BC ==
[~2024-01-03] MED LIST changes: +ALPR0.25; +GASTROGRAFIN SOLUTION 30ML As Ordered ONE; +ISOVUE-370 76% 100ML VIAL As Ordered ONE
== END ==
LOC: M RAD 08:50
PROVIDERS: ATTEND Nurse Practitioner Adult Health
DX: N13.30 Unspecified hydronephrosis (principal)

== ENCOUNTER → 2024-01-16 | Outpatient (REF) | payer OTHER ==
[~2024-01-16] MED LIST changes: -GASTROGRAFIN SOLUTION 30ML As Ordered ONE; -ISOVUE-370 76% 100ML VIAL As Ordered ONE
== END ==
LOC: M SFHCWAGY 14:54
PROVIDERS: ATTEND Obstetrics & Gynecology
DX: Z12.4 Encounter for screening for malignant neoplasm of cervix (principal)

== ENCOUNTER → 2024-08-02 | Outpatient (CLI) | payer OTHER | LOC: M RAD 13:58 | PROVIDERS: ATTEND Nurse Practitioner Family | DX: R10.9 Unspecified abdominal pain (principal) ==

== ENCOUNTER → 2024-08-02 | Outpatient (REF) | payer OTHER | LOC: M LAB REF 13:42 | PROVIDERS: ATTEND Nurse Practitioner Family | DX: R10.9 Unspecified abdominal pain (principal) ==

== ENCOUNTER → 2024-12-27 | Outpatient (REF) | payer OTHER ==
[2024-12-27 21:52] LABS: APPEARANCE, URINE CLEAR (CLEAR); BACTERIA, URINE AUTO NEGATIVE (NEGATIVE); BILIRUBIN, URINE AUTO NEGATIVE (NEGATIVE); BLOOD, URINE BLOOD 1+ (NEGATIVE); GLUCOSE, URINE (UA) AUTO NEGATIVE (NEGATIVE); KETONE, URINE AUTO NEGATIVE (NEGATIVE); LEUKOCYTE ESTERASE, URINE AUTO NEGATIVE (NEGATIVE); NITRITE, URINE AUTO POSITIVE (NEGATIVE); PROTEIN, URINE AUTO NEGATIVE (NEGATIVE); RBC, URINE AUTO 0 /HPF (0-3); SPECIFIC GRAVITY URINE AUTO 1.010 (1.002-1.035); SQUAMOUS EPITHELIAL CELL UR AU 2 /HPF (0-6); UROBILINOGEN, URINE AUTO 4.0 mg/dL (0.0-2.0); WBC, URINE AUTO 1 /HPF (0-3)
== END ==
LOC: M LAB REF 21:22
PROVIDERS: ATTEND Physician Assistant
DX: N39.0 Urinary tract infection, site not specified (principal)